=== PATIENT | female | born 1975 | race African-American/Black ===

== ENCOUNTER 2022-10-20 09:04 | Emergency (ER) | payer OTHER, SELFPAY ==
[2022-10-20] MEDS ORDERED: NA CHLORIDE 0.9% 1,000 ML ONE (09:23)
--- NOTE | 2022-10-20 09:37 | RAD REPORT ---
EXAM DESCRIPTION: RAD - Chest Single View - 10/20/2022 9:31 am CLINICAL HISTORY: MALAISE COMPARISON: No comparisons FINDINGS: Lines: None. Lungs: No evidence of edema or pneumonia. Pleural: No significant pleural effusions or pneumothorax. Cardiac: The heart size is within normal limits. Mediastinum: Within normal limits. Bones: No acute fractures. Other: None IMPRESSION: No acute cardiopulmonary disease.
--- NOTE | 2022-10-20 09:54 | RAD REPORT ---
EXAM DESCRIPTION: CT - Head Brain Wo Cont - 10/20/2022 9:44 am CLINICAL HISTORY: CONFUSED COMPARISON: No comparisons TECHNIQUE: All CT scans are performed using dose optimization technique as appropriate and may inclu de automated exposure control or mA/KV adjustment according to patient size. FINDINGS: No intracranial hemorrhage, hydrocephalus or extra-axial fluid collection.No areas of brai n edema or evidence of midline shift. The paranasal sinuses and mastoids are clear. The calvarium is intact. IMPRESSION: No acute intracranial abnormality.
[2022-10-20 09:59] LABS: Protime INR 1.15
[2022-10-20 10:02] LABS: Absolute Lymphocytes (CBC) 1.5 K/uL (0.7-4.9); Hematocrit 43.8 % (36.0-45.0); Lymphocytes % 15.1 % (15.3-44.8); MCV 93.2 fL (80-100); MPV 7.3 fL (7.6-11.3)
[2022-10-20 10:14] LABS: ALT/SGPT 24 U/L (13-56); AST/SGOT 22 U/L (15-37); Albumin 4.5 g/dL (3.4-5.0); Alkaline Phosphatase 73 U/L (45-117); BUN Blood Urea Nitrogen 18 mg/dL (7-18); Bicarbonate 25 mEq/L (21-32); Bilirubin Direct 0.3 mg/dL (0-0.2); Bilirubin Total 0.8 mg/dL (0.2-1.0); Glomerular Filtration Rate 69 ml/min (=/>90); Glucose Level 161 mg/dL (74-106); Potassium 2.9 mEq/L (3.5-5.1); Sodium Level 140 mEq/L (136-145)
[2022-10-20] MEDS ORDERED: POTASSIUM 25 MEQ EFFERV TAB ONE (13:17)
--- NOTE | 2022-10-20 14:41 | ER ---
Nurse's Notes [facility] Name: Jana Harrington Age: 46 yrs Sex: Female : 1975 Arrival Date: 10/20/2022 Time: 09:04 Bed 2 Private MD: Diagnosis: Altered mental status, unspecified Presentation: 10/20 09:07 Chief complaint: EMS states: Found by family lying on ground next to vehicle this hb morning, altered, combative. VS WNL, BGL 136. Coronavirus screen: At this time, the client does not indicate any symptoms associated with coronavirus-19. Ebola Screen: No symptoms or risks identified at this time. Initial Sepsis Screen: Does the patient meet any 2 criteria? No. Patient's initial sepsis screen is negative. Does the patient have a suspected source of infection? No. Patient's initial sepsis screen is negative. Risk Assessment: Do you want to hurt yourself or someone else? Patient reports no desire to harm self or others. Onset of symptoms was October 20, 2022. 09:07 Method Of Arrival: EMS: [facility] 09:07 Acuity: ZAKI 2 hb Historical: - Allergies: 09:09 Unable to obtain; hb - Home Meds: 09:09 Unable to obtain [Active]; hb - PMHx: 09:09 Unable to Obtain; hb - PSHx: 09:09 Unable to Obtain; hb - Immunization history:: Adult Immunizations unknown. - Social history:: Smoking status: unknown. Screenin:12 [facility] ED Fall Risk Assessment (Adult) Score/Fall Risk Level 3 or more points = High hb Risk Oriented to surroundings, Maintained a safe environment, Assessed \T\ reinforced patient's understanding of fall precautions. Abuse screen: Denies threats or abuse. Denies injuries from another. Nutritional screening: No deficits noted. Tuberculosis screening: No symptoms or risk factors identified. Assessment: 09:41 General: Appears in no apparent distress. Behavior is cooperative, restless. Pain: hb Denies pain. Neuro: Level of Consciousness is awake, alert, obeys commands, confused, Oriented to person. Cardiovascular: Patient's skin is warm and dry. Respiratory: Respiratory effort is even, unlabored, Respiratory pattern is regular, symmetrical. GI: No signs and/or symptoms were reported involving the gastrointestinal system. : No signs and/or symptoms were reported regarding the genitourinary system. EENT: No signs and/or symptoms were reported regarding the EENT system. Derm: Skin is pink, warm \T\ dry. Musculoskeletal: No signs and/or symptoms reported regarding the musculoskeletal system. 11:00 Reassessment: Patient appears in no apparent distress at this time. Patient is alert, bp oriented x 3, equal unlabored respirations, skin warm/dry/pink. 13:00 Reassessment: PT REFUSING TO ANSWER ORIENTATION QUESTIONS OR COOPERATE WITH WITH HEALTH bp CARE ACTIVITIES. RESPONDING TO INTERNAL STIMULI. 15:34 Reassessment: REPORT TO JOHN RODRIGUEZ AT [facility]. bp 15:48 Reassessment: Pt's (Grayson) contacted [id number] per MD to notify of aa5 transfer acceptance to [facility], pt's verbalized understanding. . 16:30 Reassessment: Pt refused to take wallet and phone on transfer, Grayson hb contacted via phone and is on the way to mixing picker tender belongings. Vital Signs: 09:07 BP 184 / 104; Pulse 109; Resp 26; Temp 98; Pulse Ox 100% on R/A; Weight 81.65 kg; hb Height 5 ft. 9 in. ; Pain 0/10; 09:41 BP 159 / 83; Pulse 97; Resp 21; Pulse Ox 100% on R/A; hb 11:00 BP 149 / 94; Pulse 89; Resp 15; Pulse Ox 100% ; bp 13:38 BP 165 / 84; Pulse 84; Resp 16; Pulse Ox 100% on R/A; hb 15:41 BP 138 / 88; Pulse 82; Resp 16; Pulse Ox 99% on R/A; hb 09:07 Body Mass Index 26.58 (81.65 kg, 175.26 cm) hb 09:07 Pain Scale: Non-Verbal hb ED Course: 09:06 Patient arrived in ED. hb 09:07 Gustavo Diamond MD is Attending Physician. jr11 09:09 Triage completed. hb 09:09 Arm band placed on. hb 09:13 Patient has correct armband on for positive identification. hb 09:32 Chest Single View XRAY In Process Unspecified. EDMS 09:37 Genoveva Quijano, JENNIFER is Primary Nurse. hb 09:42 Inserted saline lock: 22 gauge in left antecubital area, using aseptic technique. hb ,using aseptic technique. by Nita Blood collected. 09:46 CT Head Brain wo Cont In Process Unspecified. EDMS 14:43 initiated a transfer with Raymundo Delvis from the [facility]. eb 14:[address] Garcia the neurologist subcontract administrator for [facility] with Dr. Diamond for patient transfer consultation. 15:[address] Cobos the hospitalist subcontract administrator for [facility] with Dr. Diamond for patient transfer consultation. 15:16 administrative approval given by Raymundo Edmondson/ patient has been accepted to [facility] RM 1035/ Dr. Nasrin Cobos has accepted the patient in transfer/ report to be called to [phone]. 16:17 No provider procedures requiring assistance completed. Patient transferred, IV remains bp in place. Administered Medications: 09:58 Drug: NS 0.9% IV 1000 ml Route: IV; Rate: 1 bolus; Site: left forearm; hb 10:50 Follow up: Response: No adverse reaction; IV Status: Completed infusion; IV Intake: hb 1000ml 13:28 Drug: Potassium PO Effervescent Tablet 50 mEq Route: PO; hb 14:25 Follow up: Response: No adverse reaction hb Medication: 09:13 VIS not applicable for this client. hb Intake: 10:50 IV: 1000ml; Total: 1000ml. hb Outcome: 14:41 ER care complete, transfer ordered by jr11 16:17 Transferred by ground EMS to [facility]. bp 16:17 Condition: stable 16:17 Instructed on the need for transfer. 16:49 Patient left the ED. hb Signatures: Dispatcher [employer] EDMS Celsa Contreras RN RN aa5 Genoveva Quijano RN RN Veto Lau, JENNIFER RN Mariela Dover Jose, MD MD jr11
--- NOTE | 2022-10-20 14:42 | EDPHYS ---
Physician Documentation [facility] Name: Jana Harrington Age: 46 yrs Sex: Female : 1975 Arrival Date: 10/20/2022 Time: 09:04 Bed 2 Private MD: ED Physician Gustavo Diamond HPI: 10/20 09:11 History gathered from EMS given that the patient is not cooperative. Per EMS, they were jr11 called out for altered mental status, partner woke up, children woke up, wondering where it their mom was and if breakfast was ready. Partner went outside, found her with a blanket outside. Per the partner, she has been visually hallucinating all week, more disorganized, and today was found outside. That he knows per EMS, no psychiatric history or drug history. Unable to obtain review of systems.. Historical: - Allergies: 09:09 Unable to obtain; hb - Home Meds: 09:09 Unable to obtain [Active]; hb - PMHx: 09:09 Unable to Obtain; hb - PSHx: 09:09 Unable to Obtain; hb - Immunization history:: Adult Immunizations unknown. - Social history:: Smoking status: unknown. Exam: 09:11 Constitutional: This is a well developed, well nourished patient who is awake, alert, jr11 and in no acute distress. Head/Face: Normocephalic, atraumatic. Eyes: Extra-ocular motions intact. Lids and lashes normal. Conjunctiva and sclera are non-icteric and not injected. Cornea within normal limits. Periorbital areas with no swelling, redness, or edema. ENT: Nares patent. No nasal discharge, no septal abnormalities noted. Oropharynx with no redness, swelling, or masses, exudates, or evidence of obstruction, uvula midline. Mucous membranes moist. Cardiovascular: tachy low 100s Respiratory: Lungs have equal breath sounds bilaterally, clear to auscultation and percussion. No rales, rhonchi or wheezes noted. No increased work of breathing, no retractions or nasal flaring. Abdomen/GI: Soft, non-tender, with normal bowel sounds. No distension or tympany. No guarding or rebound. No evidence of tenderness throughout. Back: No spinal tenderness. No costovertebral tenderness. Full range of motion. Skin: Warm, dry with normal turgor. Normal color with no rashes, no lesions, and no evidence of cellulitis. MS/ Extremity: Pulses equal, no cyanosis. Neurovascular intact. Full, normal range of motion. Neuro: moving all ext x 4 Vital Signs: 09:07 BP 184 / 104; Pulse 109; Resp 26; Temp 98; Pulse Ox 100% on R/A; Weight 81.65 kg; hb Height 5 ft. 9 in. ; Pain 0/10; 09:41 BP 159 / 83; Pulse 97; Resp 21; Pulse Ox 100% on R/A; hb 11:00 BP 149 / 94; Pulse 89; Resp 15; Pulse Ox 100% ; bp 13:38 BP 165 / 84; Pulse 84; Resp 16; Pulse Ox 100% on R/A; hb 15:41 BP 138 / 88; Pulse 82; Resp 16; Pulse Ox 99% on R/A; hb 09:07 Body Mass Index 26.58 (81.65 kg, 175.26 cm) hb 09:07 Pain Scale: Non-Verbal hb MDM: 09:07 Patient medically screened. jr11 09:11 Differential Diagnosis: CVA, intracranial bleed, overdose, UTI, volume depletion. jr11 Differential Diagnosis: Patient is a 46-year-old brought in by EMS, has been progressively more disorganized, per the partner with hallucinations, potential schizophrenia, although that will be diagnosis of exclusion. Will rule out infection, bleed, tumor, will further work-up this altered mental status given that we do not know if she has any history of this. Patient does not appear to have any sign of trauma, is fully awake, moving all extremities however just not communicating. Per EMS she would have times where she would ramble. Doubt a stroke, although she is not a thrombolytics candidate given that we do not know the onset and found her like this outside the house.. Data reviewed: vital signs, nurses notes, EMS record. 09:29 ED course: EKG interpreted by me shows normal sinus rhythm, normal axis, normal jr11 intervals, no acute ST changes, nonspecific T wave inversion in V3 lead III EKG nondiagnostic. ekg monitor tech interpreted by me shows sinus tachycardia initially and now heart rate of 85 normal sinus rhythm.. 12:55 ED course: Per Grayson partner started few days ago, hyper adventism, prayer, staring jr11 at partner, disappeared, slept outside. Pt denies pain, no complaints. . ED course: Pt also talking about islam, has to touch truck. . 14:37 ED course: Pt w AMS, needs EEG per neuro, admission . 15:12 ED course: Dr Garcia neuro agrees w POC, Dr Cobos accepts . 10/20 09:10 Order name: Acetaminophen; Complete Time: 10:45 10/20 09:10 Order name: Basic Metabolic Panel; Complete Time: :45 10/20 09:10 Order name: CBC with Diff; Complete Time: :45 10/20 09:10 Order name: ETOH Level; Complete Time: :45 10/20 09:10 Order name: Hepatic Function; Complete Time: :45 10/20 09:10 Order name: PT-INR; Complete Time: :45 10/20 09:10 Order name: Ptt, Activated; Complete Time: :45 10/20 09:10 Order name: Salicylate; Complete Time: 10:45 10/20 09:10 Order name: CT Head Brain wo Cont; Complete Time: :56 10/20 09:10 Order name: Chest Single View XRAY; Complete Time: :56 10/20 09:10 Order name: EKG; Complete Time: 09:11 10/20 09:10 Order name: EKG - Nurse/Tech; Complete Time: :38 10/20 09:10 Order name: IV Saline Lock; Complete Time: 10/20 09:10 Order name: Labs collected and sent; Complete Time: 10/20 09:10 Order name: Suicide Screening ([place]); Complete Time: : Administered Medications: 09:58 Drug: NS 0.9% IV 1000 ml Route: IV; Rate: 1 bolus; Site: left forearm; hb 10:50 Follow up: Response: No adverse reaction; IV Status: Completed infusion; IV Intake: hb 1000ml 13:28 Drug: Potassium PO Effervescent Tablet 50 mEq Route: PO; hb 14:25 Follow up: Response: No adverse reaction hb Disposition Summary: 10/20/22 14:41 Transfer Ordered Transfer Location: [facility] jr11 Reason: Higher level of care jr11 Condition: Stable jr11 Problem: new jr11 Symptoms: are unchanged jr11 Accepting Physician: Dr. Cobos(10/20/22 16:49) Diagnosis - Altered mental status, unspecified jr11 Forms: - Medication Reconciliation Form jr11 - SBAR form jr11 Signatures: Dispatcher [employer] EDMS Genoveva Quijano RN RN Mariela Alvares Jose, MD MD jr11 Corrections: (The following items were deleted from the chart) 09:13 09:11 Constitutional: Negative for fever, chills Eyes: Negative for injury, pain, jr11 redness, and discharge, ENT: Negative for injury, pain, and discharge, Cardiovascular: tachy, low 100s Respiratory: Negative for shortness of breath, cough Abdomen/GI: Negative for abdominal pain, nausea, vomiting MS/Extremity: Negative for injury and deformity, Skin: Negative for injury, rash, and discoloration, Neuro: not speaking, moving all ext x 4 jr 15:46 14:[address] 16:49 15:46 Dr. Cobos [facility]
[2022-10-20 16:55] VITALS: TEMP 98
[2022-10-20 17:02] VITALS: BP 138/88; O2SAT 99
--- NOTE | 2022-10-21 12:40 | EKG ---
Test Date: 2022-10-20 Test Time: 09:23:27 Mobile Phlebotomist: LONNIE MEASUREMENT RESULTS: Intervals: Rate: 88 CA: 128 QRSD: 88 QT: 364 QTc: 440 [place]: P: 77 CA: 128 QRS: 79 T: 38 INTERPRETIVE STATEMENTS: Normal sinus rhythm Normal ECG Compared to ECG 10/15/2004 12:10:00 Sinus arrhythmia no longer present Electronically Signed On 10-21-22 12:37:16 CDT by Jaren Roberson
== END 2022-10-20 16:49 | disposition short-term general hospital (02) ==
LOC: ER 09:04
DX: R41.82 Altered mental status, unspecified (principal)
CPT/HCPCS: 36415; 70450; 71045; 80048; 80076; 85025; 85610; 85730; 93005; 96360; 99285; G0480; J7030

== ENCOUNTER 2024-07-24 22:34 | Emergency (ER) | payer SELFPAY ==
[2024-07-24] MEDS ORDERED: ZIPRASIDONE MESYLA 20 MG/VIAL IM ONE (22:50)
[2024-07-24] MEDS ORDERED: WATER FOR INJ,STERILE 10 ML ONE (22:50)
[2024-07-25] MEDS ORDERED: LORAZEPAM 1 MG TABLET ONE (01:11)
[2024-07-25] MEDS ORDERED: ACETAMINOPHEN 500 MG TAB ONE (01:11)
[2024-07-25] MEDS ORDERED: LORazepam 2 MG/ML VIAL ONE (03:14)
[2024-07-25 03:29] LABS: Absolute Basophils 0.1 K/uL (0-0.5); Absolute Lymphocytes (CBC) 3.7 K/uL (0.7-4.9); Absolute Neutrophil 6.8 K/uL (1.8-8.0); Eosinophils % 0.4 % (0-4.4); Hematocrit 43.2 % (36.0-45.0); Hemoglobin 14.8 g/dL (12.0-15.0); Lymphocytes % 31.9 % (15.3-44.8); MCH 31.5 pg (27.0-35.0); MCHC 34.2 g/dL (32.0-36.0); Monocytes % 8.4 % (3.3-12.3); Neutrophils % 58.3 % (41.7-73.7); Nucleated Red Blood Cells % 0.1 % (0-0); Platelets 333 thou/uL (152-406); Red Cell Distribution Width 12.7 % (12.1-15.2)
[2024-07-25 03:40] LABS: PT Prothrombin Time 12.4 SECONDS (9.4-12.5); PTT, Activated Partial Thromb 19.4 SECONDS (24.3-36.9); Protime INR 1.18
[2024-07-25 04:06] LABS: ALT/SGPT 20 U/L (13-56); AST/SGOT 26 U/L (15-37); Albumin 3.5 g/dL (3.4-5.0); Albumin/Globulin Ratio 0.7 (1.1-1.8); Alkaline Phosphatase 65 U/L (45-117); BUN Blood Urea Nitrogen 15 mg/dL (7-18); Bicarbonate 26 mEq/L (21-32); Bilirubin Total 0.8 mg/dL (0.2-1.0); Globulin 4.7 g/dL (2.3-3.5); Glomerular Filtration Rate 104 ml/min (=/>90); Glucose Level 143 mg/dL (74-106); Protein, Total 8.2 g/dL (6.4-8.2); Sodium Level 137 mEq/L (136-145)
[2024-07-25 04:07] LABS: Bilirubin Direct < 0.2 mg/dL (0-0.2); Bilirubin Indirect, Calculated 0.6 mg/dL (0.2-0.8)
[2024-07-25 04:47] LABS: Platelet Estimate ADEQ; Platelets Clumped FEW; White Blood Cell Scan OK (OK)
[2024-07-25 04:48] LABS: Blood Morphology Comment NOT SEEN (NOT SEEN)
--- NOTE | 2024-07-25 06:57 | EDPHYS ---
Physician Documentation [facility] Name: Jana Harrington Age: 48 yrs Sex: Female : 1975 Arrival Date: 07/24/2024 Time: 22:34 Bed 16 Private MD: ED Physician Gerardo Kidd HPI: 07/24 22:48 This 48 yrs old Black Female presents to ER via Unassigned with complaints of delusions sp4 , uncooperative behavior. 02 02:44 This is 58-year-old female with history of schizophrenia and bipolar disorder who sp4 presents with acute delusions and uncooperative behavior. EMS states patient was talking to the mirror at home and would not get out of the bathroom. Patient's family has called EMS and reported the patient has not been on her psychiatric medications for several months. On arrival patient states she is stressed out she is restlessly pacing the room. 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 - Infectious Disease History:: Denies. - Social history:: Smoking status: unknown. - Family history:: not pertinent. ROS: 07/25 02:45 Constitutional: ROS not available secondary to acute psychosis sp4 All other systems are negative, Unable to obtain ROS due to patient being uncooperative, Exam: 02:45 Constitutional: This is a well developed, well nourished patient who is awake, alert, sp4 restlessness, moderate anxiety to severe anxiety, moderate agitation, patient is pacing the room [id number] Head/Face: Normocephalic, atraumatic. Eyes: Pupils equal round and reactive to light, extra-ocular motions intact. Lids and lashes normal. Conjunctiva and sclera are not injected. Cornea within normal limits. Periorbital areas with no swelling, redness, or edema. ENT: Nares patent. No nasal discharge, no septal abnormalities noted. Tympanic membranes are normal and external auditory canals are clear. Oropharynx with no redness, swelling, or masses, exudates, or evidence of obstruction, uvula midline. Mucous membranes moist. Neck: Trachea midline, no thyromegaly or masses palpated, and no cervical lymphadenopathy. Supple, full range of motion without nuchal rigidity, or vertebral point tenderness. Chest/axilla: Normal chest wall appearance and motion. Nontender with no deformity. No lesions are appreciated. Cardiovascular: Regular rate and rhythm with a normal S1 and S2. No gallops, murmurs, or rubs. Normal PMI, no JVD. No pulse deficits. Respiratory: Lungs have equal breath sounds bilaterally, clear to auscultation and percussion. No rales, rhonchi or wheezes noted. No increased work of breathing, no retractions or nasal flaring. Abdomen/GI: Soft, with normal bowel sounds. No distension or tympany. No guarding or rebound. No evidence of tenderness throughout. Back: No spinal tenderness. No costovertebral tenderness. Skin: Warm, dry with normal turgor. Normal color with no rashes, no lesions, and no evidence of cellulitis. MS/ Extremity: Pulses equal, no cyanosis. Neurovascular intact. Full, normal range of motion. Neuro: Awake and alert, GCS 14, grossly no lateralizing neurologic deficits. Psych: Awake, alert, with orientation to person, moderate to severe anxiety, restlessness, moderate agitation Vital Signs: 07/24 22:34 BP 162 / 111; Pulse 101; Resp 18; Temp 98.1; Pulse Ox 100% ; Weight 83.91 kg; Height 6 cp4 ft. 0 in. ; Pain 0/10; 07/25 07:40 db 08:23 BP 150 / 94; Pulse 88; Resp 16; Temp 98.1; Pulse Ox 100% ; db 07/24 22:34 Body Mass Index 25.09 (83.91 kg, 182.88 cm) cp4 07/24 22:34 Pain Scale: Adult cp4 07:40 PT REFUSED MORNING LABS db Somers Coma Score: 02:45 Eye Response: spontaneous(4). Motor Response: obeys commands(6). Verbal Response: sp4 oriented(5). Total: 15. 02:45 Eye Response: spontaneous(4). Motor Response: obeys commands(6). Verbal Response: sp4 confused(4). Total: 14. MDM: 07/24 22:49 Medical Screening Exam initiated sp4 07/25 06:54 Differential diagnosis: drug withdrawal. acute psychotic break, depression, psychosis sp4 secondary to non-compliance. Data reviewed: vital signs, nurses notes, EMS record, lab test result(s), EKG. Consideration of Admission/Observation Escalation of care including admission/observation considered. ED course: Patient was discussed with the [employer] and who have reported that patient is medically cleared for their assessment. At this time patient is not able to provide any urine. Patient becomes agitated and combative on awakening. 07:20 Transition of care: After a detail discussion of the patient's case, care is sp4 transferred to Edison Daniel MD. 02 22:49 Order name: Acetaminophen; Complete Time: 05:15 sp4 07/24 22:49 Order name: Basic Metabolic Panel; Complete Time: 05:15 sp4 07/24 22:49 Order name: CBC with Diff; Complete Time: 05:15 sp4 07/24 22:49 Order name: ETOH Level; Complete Time: 05:15 sp4 07/24 22:49 Order name: Hepatic Function; Complete Time: 05:15 sp4 07/24 22:49 Order name: PT-INR; Complete Time: 05:15 sp4 07/24 22:49 Order name: Ptt, Activated; Complete Time: 05:15 sp4 07/24 22:49 Order name: Salicylate; Complete Time: 05:15 sp4 07/24 22:49 Order name: TSH; Complete Time: 05:15 sp4 07/24 22:49 Order name: T4 Free; Complete Time: 05:15 sp4 07/25 04:49 Order name: CBC Smear Scan EDMI 07/24 22:49 Order name: Labs collected and sent; Complete Time: 05:09 sp4 07/24 22:49 Order name: Suicide Precautions; Complete Time: 00:00 sp4 07/24 22:49 Order name: Suicide Screening ([place]); Complete Time: 00:00 sp4 Administered Medications: 07/24 22:58 Drug: Geodon IM 40 mg IM once Route: IM; Site: left deltoid; cp4 07/25 01:33 Follow up: Response: No adverse reaction cp4 03:11 Not Given (Patient Refused): lorazepam2 mg PO once cp4 03:11 Not Given (Patient Refused): [id number] mg PO once cp4 03:19 Not Given (Patient Refused): ns 0.9% 1000 ml IV at 1 bolus Per protocol; to be given as cp4 a bolus over 60 minutes 03:19 Drug: LORazepam IM 2 mg IM once Route: IM; Site: right deltoid; cp4 04:00 Follow up: Response: No adverse reaction; RASS: Drowsy (-1) ha1 Disposition Summary: 07/25/24 06:56 Transfer Ordered Notes: Transfer Location: [facility] Facility sp4 Reason: Higher level of care sp4 Condition: Stable sp4 Problem: new sp4 Symptoms: have improved sp4 Accepting Physician: Attending psychiatrist(07/25/24 08:39) eb Diagnosis - Acute psychosis, noncompliance with medical management, acute hallucinations and sp4 delusions Discharge Instructions: - Discharge Summary Sheet sp Forms: - Medication Reconciliation Form sp - SBAR form sp4 Signatures: Dispatcher [employer] EDMariela Castro Sergey, MD MD sp4 Alda Gonzales Heidy RN ha1 Corrections: (The following items were deleted from the chart) 07/24 22:49 22:49 ACETAMINOPHEN+C.LAB.BRZ ordered. EDMS EDMS 22:49 22:49 BASIC METABOLIC PANEL+C.LAB.BRZ ordered. EDMS EDMS 22:49 22:49 CBC+H.LAB.BRZ ordered. EDMS EDMS 22:49 22:49 ETHANOL+C.LAB.BRZ ordered. EDMS EDMS 22:49 22:49 HEPATIC FUNCTION+C.LAB.BRZ ordered. EDMS EDMS 22:49 22:49 PROTIME (+INR)+COAG.LAB.BRZ ordered. EDMS EDMS 22:49 22:49 Test, Urine+UC.LAB.BRZ ordered. EDMS EDMS 22:49 22:49 PTT, ACTIVATED+COAG.LAB.BRZ ordered. EDMS EDMS 22:49 22:49 SALICYLATE+C.LAB.BRZ ordered. EDMS EDMS 22:49 22:49 Urinalysis+U.LAB.BRZ ordered. EDMS EDMS 22:49 22:49 URINE DRUG SCREEN+UC.LAB.BRZ ordered. EDMS EDMS 07/25 05:09 07/24 22:49 EKG - Nurse/Tech ordered. sp4 ha1 07/25 05:09 07/24 22:49 IV Saline Lock ordered. sp4 ha1 07/25 08:39 06:56 Attending psychiatrist sp4 eb
--- NOTE | 2024-07-25 06:57 | ER ---
Nurse's Notes [facility] Name: Jana Harrington Age: 48 yrs Sex: Female : 1975 Arrival Date: 07/24/2024 Time: 22:34 Bed 16 Private MD: Diagnosis: Acute psychosis, noncompliance with medical management, acute hallucinations and delusions Presentation: 07/24 22:34 Chief complaint: EMS states: schizophrenia and bipolar patient that has been off her cp4 meds for 3 days. 22:34 Coronavirus screen: Client denies travel out of the [place] in the last 14 days. Ebola cp4 Screen: Patient negative for fever greater than or equal to 101.5 degrees Fahrenheit, and additional compatible Ebola Virus Disease symptoms Patient denies exposure to infectious person. Patient denies travel to an Ebola-affected area in the 21 days before illness onset. No symptoms or risks identified at this time. Initial Sepsis Screen: Does the patient meet any 2 criteria? HR > 90 bpm. No. Patient's initial sepsis screen is negative. Does the patient have a suspected source of infection? No. Patient's initial sepsis screen is negative. Risk Assessment: Do you want to hurt yourself or someone else? Patient reports no desire to harm self or others. Onset of symptoms was July 20, 2024. 22:34 Method Of Arrival: EMS: [facility] cp4 22:34 Acuity: ZAKI 2 cp4 Triage Assessment: 22:34 General: Appears in no apparent distress. comfortable, Behavior is calm, cooperative, cp4 appropriate for age. Pain: Denies pain. EENT: No signs and/or symptoms were reported regarding the EENT system. Neuro: Level of Consciousness is awake, alert, obeys commands, Oriented to person, place. Cardiovascular: Patient's skin is warm and dry. Respiratory: Airway is patent Respiratory effort is even, unlabored. GI: No signs and/or symptoms were reported involving the gastrointestinal system. : No signs and/or symptoms were reported regarding the genitourinary system. Derm: No signs and/or symptoms reported regarding the dermatologic system. Musculoskeletal: No signs and/or symptoms reported regarding the musculoskeletal system. AUDIO VISUAL FACILITIES ENGINEER: 22:34 unknown cp4 Historical: - Allergies: 22:34 No Known Allergies; cp4 - PMHx: 22:34 Schizophrenia; Bipolar disorder; cp4 - Immunization history:: Adult Immunizations not up to date. - Infectious Disease History:: Denies. - Social history:: Smoking status: unknown. - Family history:: not pertinent. Screenin:34 [facility] ED Fall Risk Assessment (Adult) History of falling in the last 3 months, cp4 including since admission No falls in past 3 months (0 pts) Confusion or Disorientation No (0 pts) Intoxicated or Sedated No (0 pts) Impaired Gait No (0 pts) Mobility Assist Device Used No (0 pt) Altered Elimination No (0 pt) Score/Fall Risk Level 0 - 2 = Low Risk Oriented to surroundings, Maintained a safe environment, Assessed \\T\\ reinforced patient's understanding of fall precautions, Hourly rounding (assess needs \\T\\ fall precautionary measures) done. Abuse screen: Denies threats or abuse. Denies injuries from another. Nutritional screening: No deficits noted. Tuberculosis screening: No symptoms or risk factors identified. Assessment: 22:34 Reassessment: No changes from previously documented assessment. cp4 22:53 Reassessment: Patient uncooperative with blood draw and EKG. Provider notified and cp4 medication ordered. 23:00 General: Behavior is agitated, uncooperative. cp4 07/25 00:00 Reassessment: Patient appears in no apparent distress at this time. No changes from cp4 previously documented assessment. Patient and/or family updated on plan of care and expected duration. Pain level reassessed. 00:00 Reassessment: Patient refusing to have vital signs taken. ha1 01:17 Reassessment: Unable to obtain IV access or blood from straight stick at this time. cp4 Patient agitated and crying out loud. 01:21 Reassessment: Patient refusing to take prescribed PO medications. Provider notified. cp4 02:30 Reassessment: TONNY REQUESTED FROM [employer]. ha1 03:23 Reassessment: Code Sanchez called due to patient walking into other patient rooms and cp4 refusing to stay in her room. 04:09 Reassessment: eyes closed, laying on bed. Respiratory: Airway is patent Respiratory ha1 effort is even, unlabored, Respiratory pattern is regular, symmetrical. 07:03 Reassessment: Patient refusing to be hooked up to monitor, will not allow nurse to take ld1 vital signs. Notified ERP. 07:03 Reassessment: Patient appears in no apparent distress at this time. General: Behavior ld1 is calm. Respiratory: Airway is patent Respiratory effort is even, unlabored. 07:24 Reassessment: Transfer paperwork completed. Waiting on transport to [facility] facility. 07:46 Reassessment: Patient appears in no apparent distress at this time. Patient and/or db family updated on plan of care and expected duration. Pain level reassessed. PT RESTING QUIETLY IN NAD. RESPIRATIONS EVEN AND UNLABORED. 08:23 Reassessment: Patient appears in no apparent distress at this time. Patient and/or db family updated on plan of care and expected duration. Pain level reassessed. Patient is alert, oriented x 3, equal unlabored respirations, skin warm/dry/pink. MENTAL HEALTH DEPUTY AT PATIENT BEDSIDE. PT CALM AND COOPERATIVE AT THIS TIME. General: Appears in no apparent distress. comfortable, Behavior is calm, cooperative. Psych: 07/24 22:34 [place] Suicide Severity Screening: In the past month, have you wished you were cp4 or wished you could go to sleep and not wake up? Patient responds "No." "In the past month, have you actually had any thoughts of killing yourself?" Patient responds "no." "In your lifetime, have you ever done anything, started to do anything, or prepared to do anything to end your life?" Patient responds "no.". Subjective: Patient's mood is irritable. Objective: Patient is cooperative, Speech is normal, Affect is flat, Patient has mutilated themselves by none. Interventions: Removed personal items and placed in bag. Patient placed in hospital gown. Searched person for dangerous items. Belonging list filled out. Safety Checks: Personal items have been removed. Pt denies substance abuse. Commitment: Patient will be a voluntary commitment. Vital Signs: 22:34 BP 162 / 111; Pulse 101; Resp 18; Temp 98.1; Pulse Ox 100% ; Weight 83.91 kg; Height 6 cp4 ft. 0 in. ; Pain 0/10; 07/25 07:40 db 08:23 BP 150 / 94; Pulse 88; Resp 16; Temp 98.1; Pulse Ox 100% ; db 07/24 22:34 Body Mass Index 25.09 (83.91 kg, 182.88 cm) cp4 02 22:34 Pain Scale: Adult cp4 07:40 PT REFUSED MORNING LABS db Bridger Coma Score: 02:45 Eye Response: spontaneous(4). Motor Response: obeys commands(6). Verbal Response: sp4 oriented(5). Total: 15. 02:45 Eye Response: spontaneous(4). Motor Response: obeys commands(6). Verbal Response: sp4 confused(4). Total: 14. ED Course: 07/24 22:34 Arm band placed on right wrist. Patient placed in an exam room, on a stretcher. cp4 22:34 Bed in low position. Call light in reach. Side rails up X2. cp4 22:34 No provider procedures requiring assistance completed. cp4 22:38 Patient arrived in ED. ha1 22:48 Gerardo Kidd MD is Attending Physician. sp4 22:58 Alda Gonzales is Primary Nurse. cp4 02 00:05 Triage completed. cp4 01:16 Missed attempt(s): 20 gauge in right. cp4 01:17 Missed attempt(s): 22 gauge in left antecubital area. cp4 03:04 Missed attempt(s): 22 gauge in right hand. cp4 03:04 Initial lab(s) drawn, by ED staff, sent to lab. cp4 03:44 One-on-one care X 60 minutes. cp4 05:17 CALLED [facility]OL[facility] FOR EOD. sp 05:19 CALLED [facility] TALKED TO: HILARIO. sp 06:[facility] Dr. Kidd to discuss patient screening. eb 06:30 faxed patient in clinical information to [facility] at [phone]. eb 06:34 connected [facility] via [facility] Iphone for patient screening. eb 07:00 connected Judah Edmond from [facility] with Alda Edmond for nurse to nurse. eb 07:09 administrative approval given by Maya Castro/ patient has been accepted to [facility] Mireille Garland/ . Maya Castro has accepted the patient in transfer. 07:28 called the [employer] to page the manager route mortgage loan computation clerk to sign transfer warrant. eb 07:31 Judge Rivas called he will send the signed warrant from his office. eb 08:23 Provided Education on: TRANSFERRED TO PSYCH. db 08:23 Warm blanket given. Pillow given. db 08:23 Patient did not have IV access during this emergency room visit. db Administered Medications: 07/24 22:58 Drug: Geodon IM 40 mg IM once Route: IM; Site: left deltoid; cp4 07/25 01:33 Follow up: Response: No adverse reaction cp4 03:11 Not Given (Patient Refused): lorazepam2 mg PO once cp4 03:11 Not Given (Patient Refused): [id number] mg PO once cp4 03:19 Not Given (Patient Refused): ns 0.9% 1000 ml IV at 1 bolus Per protocol; to be given as cp4 a bolus over 60 minutes 03:19 Drug: LORazepam IM 2 mg IM once Route: IM; Site: right deltoid; cp4 04:00 Follow up: Response: No adverse reaction; RASS: Drowsy (-1) ha1 Medication: 07/24 22:34 VIS not applicable for this client. cp4 Outcome: 07/25 06:56 ER care complete, transfer ordered by . sp4 08:23 Transferred Transfer form completed. Note: [facility] db 08:23 Condition: stable 08:23 Instructed on the need for transfer, 08:39 Patient left the ED. eb Signatures: Rylie Brice Elizabeth eb Quin Garcia, RN RN ld1 Mildred Bear RN RN ha1 Mary Ann Sinha RN RN db Gerardo Kidd MD MD sp4 Alda Gonzales cp4 Corrections: (The following items were deleted from the chart) 04:11 04:09 Reassessment: eyes closed ha1 ha1
[2024-07-25 08:43] VITALS: TEMP 98.1; O2SAT 100
[2024-07-25 08:44] VITALS: BP 150/94
== END 2024-07-25 08:39 ==
LOC: ER 22:34
DX: F23 Brief psychotic disorder (principal); Z91.199 Patient's noncompliance with other medical treatment and regimen due to unspecified reason
CPT/HCPCS: 36415; 80048; 80076; 80143; 80179; 82077; 84439; 84443; 85025; 85610; 85730; 96372; 99291; 99292; J3486

== ENCOUNTER 2025-03-12 23:38 | Emergency (ER) | payer SELFPAY ==
--- OUTSIDE RECORDS SUMMARY | 2025-03-12 23:42 | XMS REPORT | Continuity of Care Document ---
Author Name Unknown Address [address] [place] [address] [address] [place] [address] [facility] Address [address] [facility] [address] [place] [address] Care Team Providers Care Biological Sciences Instructor Name Role Phone BLANCA LING Attending Clinician Unavail able LUMA VAN V. Attending Clinician Unavailabl BLANCA Denton Admitting Clinician Unavail able Problems Condition Name Condition Details Condition Category Status Onset Date Resolution Date Last Treatment Date Treating Clinician Comments Source Altered behavior Altered behavior Disease Active 10-20 00:00: 00 [facility] Allergies, Adverse Reactions, Alerts Allergy Name Allergy Type Status Severity Reaction(s) Onset Date Inactive Date Treating Clinician Comments Source NO KNOWN ALLERGIE S Allergy Active [facility] Social History Social Habit Start Date Stop Date Quantity Comments Source ASSERTION Not [facility] Sexual orientation C [facility] Sex 2025-02-01 01:27:10 2025-02-01 01:27:10 Female (finding) [facility] Sex assigned at 1975 00:00:00 1975 00:00:00 [facility] Medications Ordered Medication Name Filled Medication Name Start Date Stop Date Current Medication? Ordering Clinician Indication Dosage Frequency Signature (SIG) Comments Components Source melatonin 3 mg tablet 10-29 00:00: 00 Yes 3mg Take 1 tablet (3 mg total) by mouth every night as needed for Insomnia. [facility] Procedures Procedure Date / Time Performed Performing Clinicia n Source LIPID PANEL 2022-10-21 04:45:[address] [facility] HC LAB HIV-1 AG W/HIV-1&2 AB 2022-10-21 04:45:00 Desaimable Green Sharon [facility] Encounters Start Date/Time End Date/Time Encounter Type Admission Type Attending Clinicians Care Facility Care Department Encounter ID Source 2022-10-20 17:36:00 2022-10-29 12:55:00 Inpatient ER [facility] Neurology [id number] [facility] Results Test Description Test Time Test Comments Results Result Co mments Source FL, LUMBAR PUNCTURE, [id number] 10:47:00Send csf for protein, glucose, cell count with diff as part of lupus w/u Reason for exam:->[facility] 1975 Sex: FFINAL REPORT Procedure: Lumbar puncture Modality: Fluoroscopy Total fluoroscopy time: 0.3 Total number of films: 2 Sedation: None Anesthesia: 1% lidocaine local Indication: lumbar puncture Discussion: The patient was sterilely prepped and draped. 1% lidocaine was used for local anesthesia. Using fluoroscopic guidance, a 22g needle was introduced into the thecal sac. Approximately9 cc of spinal fluid was removed and sent to the laboratory. There were no procedure related complications. Impression: Successful fluoroscopy guided lumbar puncture. Signed: Nayla Hitchcock MDRisamarort Verified Date/Time: 10/30/2022 10:47:40 Reading Location: [facility] C013V Neuro Reading Room PROTEIN, CSF 2022-10-29 12:51:31* Test Item Value Reference Range Interpretation Comme nts PROTEIN CSF (BEAKER) (test c ode = 378) 53 mg/dL 15-45 [employer] ID - JSCSF CELL COUNT W/[id number] 12:16:22* Test Item Value Reference Range Interpretation Comme nts APPEARANCE CSF (BEAKER) (vish t code = 407) Clear Clear COLOR CSF (BEAKER) (test cod e = 408) Colorless Colorless RBC CSF (BEAKER) (test code = 409) 5 /cu mm 0-5 WBC CSF (BEAKER) (test code = 1020) 0 /cu mm <=5 RBCS FRESH (BEAKER) (test co de = 1444) 100% Fresh NUMBER OF CELLS DIFF'D (BEAK ER) (test code = 1591) 10 NEUTROPHIL, CSF (BEAKER) (te st code = 324) 0 % 0-5 LYMPHS CSF (BEAKER) (test co de = 438) 40 % 40-80 MONO/MACROPHAGE CSF (BEAKER) (test code = 439) 60 % 15-45 H EOSINOPHILS CSF (BEAKER) (te st code = 360) 0 % <=0 BASO CSF (BEAKER) (test code = 440) 0 % <=0 TUBE NUMBER CSF (BEAKER) (te st code = 3798) EDTA GLUCOSE, [id number] 09:44:36* Test Item Value Reference Range Interpretation Comme nts GLUCOSE CSF (BEAKER) (test c ode = 406) 83 mg/dL 40-70 [employer] ID - JSPREGNANCY SCREEN, [id number] 07:32:06* Test Item Value Reference Range Interpretation Comme nts TEST URINE (BEAKER ) (test code = 583) Negative Negative BASIC METABOLIC [id number] 06:44:10* Test Item Value Reference Range Interpretation Comme nts SODIUM (BEAKER) (test code = 381) 136 meq/L 136-145 POTASSIUM (BEAKER) (test code = 379) 3.6 meq/L 3.5-5.1 CHLORIDE (BEAKER) (test code = 382) 106 meq/L 98-107 CO2 (BEAKER) (test code = 355) 23 meq/L 22-29 BLOOD UREA NITROGEN (BEAKER) (test code = 354) 7 mg/dL 7-21 CREATININE (BEAKER) (test code = 358) 0.68 mg/dL 0.57-1.25 GLUCOSE RANDOM (BEAKER) (test code = 652) 125 mg/dL 70-105 H CALCIUM (BEAKER) (test code = 697) 8.7 mg/dL 8.4-10.2 EGFR (BEAKER) (test code = 1092) 109 mL/min/1.73 sq m Interpretation of eG FR values Stage Description Result G1 Normal or high >=90 G2 Mildly decreased 60-89 G3a Mildly to moderately 45-59 G3b Moderately to severely 30-44 G4 Severly decreased 15-29 G5 Kidney failure <15Reported eGFR is based on the CKD-EPI 2020 equation that does not use a race coefficientEstimated GFR is not as accurate as Creatinine Clearance in predicting glomerular filtration rate. Estimated GFR is not applicable for dialysis patients [employer] L[employer] ID - BSCBC W/PLT COUNT & AUTO [id number] 06:12:08* Test Item Value Reference Range Interpretation Comme nts WHITE BLOOD CELL COUNT (BEAK ER) (test code = 775) 6.6 K/ L 3.5-10.5 RED BLOOD CELL COUNT (BEAKER ) (test code = 761) 4.18 M/ L 3.93-5.22 HEMOGLOBIN (BEAKER) (test co de = 410) 13.0 GM/DL 11.2-15.7 HEMATOCRIT (BEAKER) (test co de = 411) 38.5 % 34.1-44.9 MEAN CORPUSCULAR VOLUME (JUDIT KER) (test code = 753) 92 fL 79-95 MEAN CORPUSCULAR HEMOGLOBIN (BEAKER) (test code = 751) 31.1 pg 25.6-32.2 MEAN CORPUSCULAR HEMOGLOBIN CONC (BEAKER) (test code = 752) 33.8 GM/DL 32.2-35.5 RED CELL DISTRIBUTION WIDTH (BEAKER) (test code = 412) 11.7 % 11.7-14.4 PLATELET COUNT (BEAKER) (vish t code = 756) 390 K/CU MM 150-450 MEAN PLATELET VOLUME (BEAKER ) (test code = 754) 9.2 fL 9.4-12.3 L NUCLEATED RED BLOOD CELLS (BEAKER) (test code = 413) 0 /100 WBC 0-0 NEUTROPHILS RELATIVE PERCENT (BEAKER) (test code = 429) 40 % LYMPHOCYTES RELATIVE PERCENT (BEAKER) (test code = 430) 46 % MONOCYTES RELATIVE PERCENT (BEAKER) (test code = 431) 10 % EOSINOPHILS RELATIVE PERCENT (BEAKER) (test code = 432) 4 % BASOPHILS RELATIVE PERCENT (BEAKER) (test code = 437) 1 % NEUTROPHILS ABSOLUTE COUNT (BEAKER) (test code = 670) 2.68 K/ L 1.56-6.13 LYMPHOCYTES ABSOLUTE COUNT (BEAKER) (test code = 414) 3.03 K/ L 1.18-3.74 MONOCYTES ABSOLUTE COUNT (BE NNAMDI) (test code = 415) 0.63 K/ L 0.24-0.36 H EOSINOPHILS ABSOLUTE COUNT (BEAKER) (test code = 416) 0.23 K/ L 0.04-0.36 BASOPHILS ABSOLUTE COUNT (BE NNAMDI) (test code = 417) 0.05 K/ L 0.01-0.08 IMMATURE GRANULOCYTES-RELATI VE PERCENT (BEAKER) (test code = 2801) 0.20 % 0.00-1.00 [id number] 06:06:19* Test Item Value Reference Range Interpretation Comme nts PROTIME (BEAKER) (test code = 759) 14.3 seconds 11.9-14.2 H INR (BEAKER) (test code = 370) 1.18 <=5.90 PARTIAL THROMBOPLASTIN TIME (BEAKER) (test code = 760) 29.1 seconds 22.5-36.0 RECOMMENDED COUMADIN/WARFARIN INR THERAPY RANGESSTANDARD DOSE: 2.0 - 3.0 Includes: PROPHYLAXIS for venous thrombosis, systemic embolization; TREATMENT for venous thrombosis and/or pulmonary embolus.HIGH RISK: Target INR is 2.5-3.5 for patients with mechanical heart valves.BASIC METABOLIC [id number] 05:01:23* Test Item Value Reference Range Interpretation Comme nts SODIUM (BEAKER) (test code = 381) 138 meq/L 136-145 POTASSIUM (BEAKER) (test code = 379) 3.9 meq/L 3.5-5.1 CHLORIDE (BEAKER) (test code = 382) 108 meq/L 98-107 H CO2 (BEAKER) (test code = 355) 23 meq/L 22-29 BLOOD UREA NITROGEN (BEAKER) (test code = 354) 8 mg/dL 7-21 CREATININE (BEAKER) (test code = 358) 0.67 mg/dL 0.57-1.25 GLUCOSE RANDOM (BEAKER) (test code = 652) 163 mg/dL 70-105 H CALCIUM (BEAKER) (test code = 697) 9.0 mg/dL 8.4-10.2 EGFR (BEAKER) (test code = 1092) 110 mL/min/1.73 sq m Interpretation of eG FR values Stage Description Result G1 Normal or high >=90 G2 Mildly decreased 60-89 G3a Mildly to moderately 45-59 G3b Moderately to severely 30-44 G4 Severly decreased 15-29 G5 Kidney failure <15Reported eGFR is based on the CKD-EPI 2021 equation that does not use a race coefficientEstimated GFR is not as accurate as Creatinine Clearance in predicting glomerular filtration rate. Estimated GFR is not applicable for dialysis patients [employer] METABOLIC [id number] 05:15:59* Test Item Value Reference Range Interpretation Comme nts SODIUM (BEAKER) (test code = 381) 139 meq/L 136-145 POTASSIUM (BEAKER) (test code = 379) 3.7 meq/L 3.5-5.1 CHLORIDE (BEAKER) (test code = 382) 105 meq/L 98-107 CO2 (BEAKER) (test code = 355) 26 meq/L 22-29 BLOOD UREA NITROGEN (BEAKER) (test code = 354) 7 mg/dL 7-21 CREATININE (BEAKER) (test code = 358) 0.66 mg/dL 0.57-1.25 GLUCOSE RANDOM (BEAKER) (test code = 652) 119 mg/dL 70-105 H CALCIUM (BEAKER) (test code = 697) 9.3 mg/dL 8.4-10.2 EGFR (BEAKER) (test code = 1092) 110 mL/min/1.73 sq m Interpretation of eG FR values Stage Description Result G1 Normal or high >=90 G2 Mildly decreased 60-89 G3a Mildly to moderately 45-59 G3b Moderately to severely 30-44 G4 Severly decreased 15-29 G5 Kidney failure <15Reported eGFR is based on the CKD-EPI 2021 equation that does not use a race coefficientEstimated GFR is not as accurate as Creatinine Clearance in predicting glomerular filtration rate. Estimated GFR is not applicable for dialysis patients [employer] Librarian ID - [employer] METABOLIC [id number] 05:50:42* Test Item Value Reference Range Interpretation Comme nts SODIUM (BEAKER) (test code = 381) 139 meq/L 136-145 POTASSIUM (BEAKER) (test code = 379) 3.9 meq/L 3.5-5.1 CHLORIDE (BEAKER) (test code = 382) 108 meq/L 98-107 H CO2 (BEAKER) (test code = 355) 24 meq/L 22-29 BLOOD UREA NITROGEN (BEAKER) (test code = 354) 6 mg/dL 7-21 L CREATININE (BEAKER) (test code = 358) 0.68 mg/dL 0.57-1.25 GLUCOSE RANDOM (BEAKER) (test code = 652) 132 mg/dL 70-105 H CALCIUM (BEAKER) (test code = 697) 9.3 mg/dL 8.4-10.2 EGFR (BEAKER) (test code = 1092) 109 mL/min/1.73 sq m Interpretation of eG FR values Stage Description Result G1 Normal or high >=90 G2 Mildly decreased 60-89 G3a Mildly to moderately 45-59 G3b Moderately to severely 30-44 G4 Severly decreased 15-29 G5 Kidney failure <15Reported eGFR is based on the CKD-EPI 2020 equation that does not use a race coefficientEstimated GFR is not as accurate as Creatinine Clearance in predicting glomerular filtration rate. Estimated GFR is not applicable for dialysis patients [employer] L[employer] ID - ADMINMR, BRAIN, [id number] 20:54:00Unlisted Reason for Exam - Click Yes and Enter Reason Below->Yes Unlisted Reason for Exam->acute psychosis, positive [facility] 1975 Sex: FFINAL REPORT MRI Brain with and without contrast CLINICAL HISTORY: Unlisted Reasonfor Examacute psychosis, positive CORINNE Technique: Multiplanar, multisequence MRI images of the brainobtained with and without IV contrast. Comparisons: None Findings: There is no abnormal intracranial enhancement or mass. There is no evidence of acute infarct or hemorrhage. There are no extra-axialfluid collections. The craniocervical junction is preserved. The major intracranial flow-voids appear patent. IMPRESSION: No evidence of acute infarct, hemorrhage, hydrocephalus, or mass. Signed: Caleb Layton MDReport Verified Date/Time: 10/25/2022 20:54:41 LUPUS ANTICOAGULANT SCREEN WITH REFLEX TO [id number] 17:22:51* Test Item Value Reference Range Interpretation Comme nts DRVV SCREEN RATIO (BEAKER) (test code = 2707) 0.75 <1.20 DRVV INTERPRETATION (BEAKER) (test code = 2406) Negative screen for Lupus Anticoagulant PROTIME (BEAKER) (test code = 759) 12.7 seconds 11.9-14.2 INR (BEAKER) (test code = 370) 0.97 <=5.90 PARTIAL THROMBOPLASTIN TIME (BEAKER) (test code = 760) 27.0 seconds 22.5-36.0 PTT-LA (BEAKER) (test code = 8822532830) 36.4 32.0-41.8 [id number] (BEAKER) (test code = 2610) Damien Malone M.D. ([facility] signature) BASIC METABOLIC [id number] 06:37:51* Test Item Value Reference Range Interpretation Comme nts SODIUM (BEAKER) (test code = 381) 138 meq/L 136-145 POTASSIUM (BEAKER) (test code = 379) 3.7 meq/L 3.5-5.1 CHLORIDE (BEAKER) (test code = 382) 105 meq/L 98-107 CO2 (BEAKER) (test code = 355) 26 meq/L 22-29 BLOOD UREA NITROGEN (BEAKER) (test code = 354) 8 mg/dL 7-21 CREATININE (BEAKER) (test code = 358) 0.68 mg/dL 0.57-1.25 GLUCOSE RANDOM (BEAKER) (test code = 652) 126 mg/dL 70-105 H CALCIUM (BEAKER) (test code = 697) 9.2 mg/dL 8.4-10.2 EGFR (BEAKER) (test code = 1092) 109 mL/min/1.73 sq m Interpretation of eG FR values Stage Description Result G1 Normal or high >=90 G2 Mildly decreased 60-89 G3a Mildly to moderately 45-59 G3b Moderately to severely 30-44 G4 Severly decreased 15-29 G5 Kidney failure <15Reported eGFR is based on the CKD-EPI 2020 equation that does not use a race coefficientEstimated GFR is not as accurate as Creatinine Clearance in predicting glomerular filtration rate. Estimated GFR is not applicable for dialysis patients [employer] L[employer] ID - [id number] 18:46:59* Test Item Value Reference Range Interpretation Comme nts PROTIME (GRAYAKER) (test code = 759) 14.1 seconds 11.9-14.2 INR (BEAKER) (test code = 370) 1.16 <=5.90 PARTIAL THROMBOPLASTIN TIME (BEAKER) (test code = 760) 26.7 seconds 22.5-36.0 RECOMMENDED COUMADIN/WARFARIN INR THERAPY RANGESSTANDARD DOSE: 2.0 - 3.0 Includes: PROPHYLAXIS for venous thrombosis, systemic embolization; TREATMENT for venous thrombosis and/or pulmonary embolus.HIGH RISK: Target INR is 2.5-3.5 for patients with mechanical heart valves.DOUBLE-STRANDED DNA (DSDNA) ANTIBODY 2022-10-24 13:15:18* Test Item Value Reference Range Interpretation Comme nts ANTI-DNA DS (BEAKER) (test c ode = 1055) Negative Negative CORINNE TITER AND [id number] 13:11:11* Test Item Value Reference Range Interpretation Comme nts CORINNE TITER (BEAKER) (test cod e = 1541) :640 CORINNE PATTERN (BEAKER) (test c ode = 1781) Speckled ANTI-NUCLEAR ANTIBODY (CORINNE)2022-10-24 13:10:49* Test Item Value Reference Range Interpretation Comme nts ANTI-NUCLEAR ANTIBODY (CORINNE) (BEAKER) (test code = 418) Positive Negative A Test performed by IFA method.BASIC METABOLIC [id number] 12:14:46* Test Item Value Reference Range Interpretation Comme nts SODIUM (BEAKER) (test code = 381) 138 meq/L 136-145 POTASSIUM (BEAKER) (test code = 379) 3.3 meq/L 3.5-5.1 L CHLORIDE (BEAKER) (test code = 382) 103 meq/L 98-107 CO2 (BEAKER) (test code = 355) 25 meq/L 22-29 BLOOD UREA NITROGEN (BEAKER) (test code = 354) 7 mg/dL 7-21 CREATININE (BEAKER) (test code = 358) 0.80 mg/dL 0.57-1.25 GLUCOSE RANDOM (BEAKER) (test code = 652) 278 mg/dL 70-105 H CALCIUM (BEAKER) (test code = 697) 9.0 mg/dL 8.4-10.2 EGFR (BEAKER) (test code = 1092) 93 mL/min/1.73 sq m Interpretation of eG FR values Stage Description Result G1 Normal or high >=90 G2 Mildly decreased 60-89 G3a Mildly to moderately 45-59 G3b Moderately to severely 30-44 G4 Severly decreased 15-29 G5 Kidney failure <15Reported eGFR is based on the CKD-EPI 2020 equation that does not use a race coefficientEstimated GFR is not as accurate as Creatinine Clearance in predicting glomerular filtration rate. Estimated GFR is not applicable for dialysis patients [employer] Librarian ID - [id number] 12:14:46* Test Item Value Reference Range Interpretation Comme nts MAGNESIUM (BEAKER) (test cod e = 627) 1.7 mg/dL 1.6-2.6 [employer] L[employer] ID - MMCBC (HEMOGRAM ONLY)2022-10-24 11:55:09* Test Item Value Reference Range Interpretation Comme nts WHITE BLOOD CELL COUNT (BEAK ER) (test code = 775) 4.3 K/ L 3.5-10.5 RED BLOOD CELL COUNT (BEAKER ) (test code = 761) 3.98 M/ L 3.93-5.22 HEMOGLOBIN (BEAKER) (test co de = 410) 12.3 GM/DL 11.2-15.7 HEMATOCRIT (BEAKER) (test co de = 411) 35.9 % 34.1-44.9 MEAN CORPUSCULAR VOLUME (JUDIT KER) (test code = 753) 90 fL 79-95 MEAN CORPUSCULAR HEMOGLOBIN (BEAKER) (test code = 751) 30.9 pg 25.6-32.2 MEAN CORPUSCULAR HEMOGLOBIN CONC (BEAKER) (test code = 752) 34.3 GM/DL 32.2-35.5 RED CELL DISTRIBUTION WIDTH (BEAKER) (test code = 412) 11.6 % 11.7-14.4 L PLATELET COUNT (BEAKER) (vish t code = 756) 358 K/CU MM 150-450 MEAN PLATELET VOLUME (BEAKER ) (test code = 754) 8.9 fL 9.4-12.3 L NUCLEATED RED BLOOD CELLS (BEAKER) (test code = 413) 0 /100 WBC 0-0 CARDIOLIPIN ANTIBODIES, IGG AND [id number] 09:12:05* Test Item Value Reference Range Interpretation Comme nts ANTICARDIOLIPIN IGG ANTIBODY (BEAKER) (test code = 712) < GPL <20.0 ANTICARDIOLIPIN IGM ANTIBODY (BEAKER) (test code = 713) < MPL <20.0 Anticardiolipin IgG Result Interpretation: <20.0 GPL Normal>/= 20.0 GPL PositiveAnticardiolipin IgM Result Interpretation: <20.0 MPL Normal>/= 20.0 MPL PositivePROTEIN, RANDOM [id number] 17:09:39* Test Item Value Reference Range Interpretation Comme nts PROTEIN, URINE (BEAKER) (vish t code = 1569) < mg/dL 0-14 [employer] L[employer] ID - ADMINCREATININE, RANDOM [id number] 17:09:21* Test Item Value Reference Range Interpretation Comme nts CREATININE URINE (BEAKER) (t est code = 375) 44.0 mg/dL Reference Range: No NormalsOperator ID - ADMINCOMPLEMENT COMPONENT [id number] 17:00:13* Test Item Value Reference Range Interpretation Comme nts C3 COMPLEMENT (BEAKER) (test code = 393) 112 mg/dL 82-193 [employer] L[employer] ID - ADMINCOMPLEMENT COMPONENT [id number] 17:00:12* Test Item Value Reference Range Interpretation Comme nts C4 COMPLEMENT (BEAKER) (test code = 394) 31 mg/dL 15-57 [employer] L[employer] ID - [id number] 16:00:14* Test Item Value Reference Range Interpretation Comme nts MAGNESIUM (BEAKER) (test cod e = 627) 1.8 mg/dL 1.6-2.6 [employer] L[employer] ID - ADMINBASIC METABOLIC [id number] 16:00:13* Test Item Value Reference Range Interpretation Comme nts SODIUM (BEAKER) (test code = 381) 141 meq/L 136-145 POTASSIUM (BEAKER) (test code = 379) 3.1 meq/L 3.5-5.1 L CHLORIDE (BEAKER) (test code = 382) 105 meq/L 98-107 CO2 (BEAKER) (test code = 355) 28 meq/L 22-29 BLOOD UREA NITROGEN (BEAKER) (test code = 354) 8 mg/dL 7-21 CREATININE (BEAKER) (test code = 358) 0.73 mg/dL 0.57-1.25 GLUCOSE RANDOM (BEAKER) (test code = 652) 168 mg/dL 70-105 H CALCIUM (BEAKER) (test code = 697) 10.0 mg/dL 8.4-10.2 EGFR (BEAKER) (test code = 1092) 103 mL/min/1.73 sq m Interpretation of eG FR values Stage Description Result G1 Normal or high >=90 G2 Mildly decreased 60-89 G3a Mildly to moderately 45-59 G3b Moderately to severely 30-44 G4 Severly decreased 15-29 G5 Kidney failure <15Reported eGFR is based on the CKD-EPI 2020 equation that does not use a race coefficientEstimated GFR is not as accurate as Creatinine Clearance in predicting glomerular filtration rate. Estimated GFR is not applicable for dialysis patients [employer] Librarian ID - ADMINURINALYSIS W/ [id number] 15:42:07* Test Item Value Reference Range Interpretation Comme nts COLOR (BEAKER) (test code = 470) Light Yellow CLARITY (BEAKER) (test code = 469) Clear SPECIFIC GRAVITY UA (BEAKER) (test code = 468) 1.006 1.001-1.035 PH UA (BEAKER) (test code = 467) 6.5 5.0-8.0 PROTEIN UA (BEAKER) (test co de = 464) Negative Negative GLUCOSE UA (BEAKER) (test co de = 365) 150 mg/dL Negative A KETONES UA (BEAKER) (test co de = 371) Negative Negative BILIRUBIN UA (BEAKER) (test code = 462) Negative Negative BLOOD UA (BEAKER) (test code = 461) Negative Negative NITRITE UA (BEAKER) (test co de = 465) Negative Negative LEUKOCYTE ESTERASE UA (BEAKE R) (test code = 466) Negative Negative UROBILINOGEN UA (BEAKER) (te st code = 463) 0.2 0.2-1.0 RBC UA (BEAKER) (test code = 519) 1 /HPF WBC UA (BEAKER) (test code = 520) 1 /HPF SQUAMOUS EPITHELIAL (BEAKER) (test code = 516) 1 /HPF SOURCE(BEAKER) (test code = 2795) Urine, Voided [employer] Librarian ID - [auto][employer] Librarian ID - techCBC (HEMOGRAM ONLY)2022-10-23 15:23:37* Test Item Value Reference Range Interpretation Comme nts WHITE BLOOD CELL COUNT (BEAK ER) (test code = 775) 7.0 K/ L 3.5-10.5 RED BLOOD CELL COUNT (BEAKER ) (test code = 761) 4.78 M/ L 3.93-5.22 HEMOGLOBIN (BEAKER) (test co de = 410) 14.5 GM/DL 11.2-15.7 HEMATOCRIT (BEAKER) (test co de = 411) 42.7 % 34.1-44.9 MEAN CORPUSCULAR VOLUME (JUDIT KER) (test code = 753) 89 fL 79-95 MEAN CORPUSCULAR HEMOGLOBIN (BEAKER) (test code = 751) 30.3 pg 25.6-32.2 MEAN CORPUSCULAR HEMOGLOBIN CONC (BEAKER) (test code = 752) 34.0 GM/DL 32.2-35.5 RED CELL DISTRIBUTION WIDTH (BEAKER) (test code = 412) 11.6 % 11.7-14.4 L PLATELET COUNT (BEAKER) (vish t code = 756) 401 K/CU MM 150-450 MEAN PLATELET VOLUME (BEAKER ) (test code = 754) 9.7 fL 9.4-12.3 NUCLEATED RED BLOOD CELLS (BEAKER) (test code = 413) 0 /100 WBC 0-0 BASIC METABOLIC [id number] 08:37:08* Test Item Value Reference Range Interpretation Comme nts SODIUM (BEAKER) (test code = 381) 142 meq/L 136-145 POTASSIUM (BEAKER) (test code = 379) 3.3 meq/L 3.5-5.1 L Specimen slightl y hemolyzed CHLORIDE (BEAKER) (test code = 382) 104 meq/L 98-107 CO2 (BEAKER) (test code = 355) 32 meq/L 22-29 H BLOOD UREA NITROGEN (BEAKER) (test code = 354) 6 mg/dL 7-21 L CREATININE (BEAKER) (test code = 358) 0.63 mg/dL 0.57-1.25 Specimen slightl y hemolyzed GLUCOSE RANDOM (BEAKER) (test code = 652) 145 mg/dL 70-105 H CALCIUM (BEAKER) (test code = 697) 9.2 mg/dL 8.4-10.2 EGFR (BEAKER) (test code = 1092) 111 mL/min/1.73 sq m Interpretation of eG FR values Stage Description Result G1 Normal or high >=90 G2 Mildly decreased 60-89 G3a Mildly to moderately 45-59 G3b Moderately to severely 30-44 G4 Severly decreased 15-29 G5 Kidney failure <15Reported eGFR is based on the CKD-EPI 2020 equation that does not use a race coefficientEstimated GFR is not as accurate as Creatinine Clearance in predicting glomerular filtration rate. Estimated GFR is not applicable for dialysis patients [id number] 08:36:52* Test Item Value Reference Range Interpretation Comme nts MAGNESIUM (BEAKER) (test code = 627) 1.8 mg/dL 1.6-2.6 Specimen sligh tly hemolyzed CBC (HEMOGRAM ONLY)2022-10-23 05:13:32* Test Item Value Reference Range Interpretation Comme nts WHITE BLOOD CELL COUNT (BEAK ER) (test code = 775) 6.4 K/ L 3.5-10.5 RED BLOOD CELL COUNT (BEAKER ) (test code = 761) 4.45 M/ L 3.93-5.22 HEMOGLOBIN (BEAKER) (test co de = 410) 13.7 GM/DL 11.2-15.7 HEMATOCRIT (BEAKER) (test co de = 411) 40.0 % 34.1-44.9 MEAN CORPUSCULAR VOLUME (JUDIT KER) (test code = 753) 90 fL 79-95 MEAN CORPUSCULAR HEMOGLOBIN (BEAKER) (test code = 751) 30.8 pg 25.6-32.2 MEAN CORPUSCULAR HEMOGLOBIN CONC (BEAKER) (test code = 752) 34.3 GM/DL 32.2-35.5 RED CELL DISTRIBUTION WIDTH (BEAKER) (test code = 412) 11.8 % 11.7-14.4 PLATELET COUNT (BEAKER) (vish t code = 756) 395 K/CU MM 150-450 MEAN PLATELET VOLUME (BEAKER ) (test code = 754) 9.0 fL 9.4-12.3 L NUCLEATED RED BLOOD CELLS (BEAKER) (test code = 413) 0 /100 WBC 0-0 CORINNE TITER AND [id number] 13:38:34* Test Item Value Reference Range Interpretation Comme nts CORINNE TITER (BEAKER) (test cod e = 1541) :640 CORINNE PATTERN (BEAKER) (test c ode = 1781) Speckled ANTI-NUCLEAR ANTIBODY (CORINNE)2022-10-22 13:38:16* Test Item Value Reference Range Interpretation Comme nts ANTI-NUCLEAR ANTIBODY (CORINNE) (BEAKER) (test code = 418) Positive Negative A Test performed by IFA method.SARS-COV2/INFLUENZA A&B [id number] 11:12:03* Test Item Value Reference Range Interpretation Comme nts SARS-COV2/RT-PCR (test code = 6325636) Negative Negative The SARS-CoV-2 t arget nucleic acids are not detected in this specimen. Negative results do not preclude SARS-CoV-2 infection and should not be used as the sole basis for patient management decisions. Negative results must be combined with clinical observations, patient history, and epidemiological information. A false negative result may occur if a specimen is improperly collected, transported or handled. This SARS CoV-2 test is a rapid, real-time RT-PCR test intended for the qualitative detection of nucleic acid from SARS-CoV-2 in a nasopharyngeal swab specimen collected from individuals suspected of COVID-19 by their healthcare provider. INFLUENZA A RT-PCR (test code = 1783560) Negative Negative The Flu A target nucleic acids are not detected in this specimen. INFLUENZA B RT-PCR (test code = 8470101) Negative Negative The Flu B target nucleic acids are not detected in this specimen. The presence of SARS-CoV-2/FLU/RSV viral nucleic acids cannot rule out co- infections or disease caused by other viral or bacterial pathogens. As with any molecular test, mutations within the target regions of the Xpert Xpress SARS-CoV-2/Flu/RSV test could affect primer and/or probe binding resulting in failure to detect the presence of virus or the virus being detected less predictably. False negative results may occur if the virus is present at levels below the analytical limit of detection inthis specimen.This Xpert Xpress SARS-CoV-2/Flu/RSV test is a rapid, real-time RT-PCR test intended for the qualitative detection of nucleic acid from Xpert Xpress SARS-CoV-2/Flu/RSV in a nasopharyngeal swab specimen collected from individuals suspected of Xpert Xpress SARS-CoV-2/Flu/RSV by their healthcare provider. Results from lisa Xpert Xpress SARS-CoV-2/Flu/RSV test should be correlated with the clinical history, epidemiological data, and other data available to the clinician evaluating the p atient. Viral nucleic acid may persist in vivo, independent of virus viability. Detection of analyte target(s) does not imply that the corresponding virus(es) are infectious or are the causative agents for clinical symptoms.This test has not been Food and Drug Administration (FDA) cleared or approved and has been authorized by FDA under an Emergency Use Authorization (EUA). This EUA will be effective until the declaration that circumstances exist justifying the authorization of the emergency use of in vitro diagnostic tests for detection and/or diagnosis of COVID-19 is terminated under Section 564(b)(2) of the Act or the EUA is revoked under Section 564(g) of the Act.Fact Sheet for Healthcare Providers:https://www.[employer]/Documents/Xpert%20Xpress%20SARS%20CoV-2/Fact%2 0Sheets/302-9416%78CZSR-KON-8%20HEALTHCARE%20PROVIDERS%20FACT%20SHEET.pdfFact Sheet for Healthcare Patients:https://ww w.[employer]/Documents/Xpert%20Xpress%20SARS%20Cov-2/Fact%20Sheets/302-3801%20S ARS-COV-2%20PATIENT%20FACT%20SHEET.pdfBASI METABOLIC [id number] 15:42:07* Test Item Value Reference Range Interpretation Comme nts SODIUM (BEAKER) (test code = 381) 142 meq/L 136-145 POTASSIUM (BEAKER) (test code = 379) 3.5 meq/L 3.5-5.1 CHLORIDE (BEAKER) (test code = 382) 107 meq/L 98-107 CO2 (BEAKER) (test code = 355) 26 meq/L 22-29 BLOOD UREA NITROGEN (BEAKER) (test code = 354) 10 mg/dL 7-21 CREATININE (BEAKER) (test code = 358) 0.77 mg/dL 0.57-1.25 GLUCOSE RANDOM (BEAKER) (test code = 652) 193 mg/dL 70-105 H CALCIUM (BEAKER) (test code = 697) 9.5 mg/dL 8.4-10.2 EGFR (BEAKER) (test code = 1092) 97 mL/min/1.73 sq m Interpretation of eG FR values Stage Description Result G1 Normal or high >=90 G2 Mildly decreased 60-89 G3a Mildly to moderately 45-59 G3b Moderately to severely 30-44 G4 Severly decreased 15-29 G5 Kidney failure <15Reported eGFR is based on the CKD-EPI 2020 equation that does not use a race coefficientEstimated GFR is not as accurate as Creatinine Clearance in predicting glomerular filtration rate. Estimated GFR is not applicable for dialysis patients [employer] Libr[employer] ID - [id number] 15:42:07* Test Item Value Reference Range Interpretation Comme nts MAGNESIUM (BEAKER) (test cod e = 627) 1.8 mg/dL 1.6-2.6 [employer] L[employer] ID - [id number] 12:55:11* Test Item Value Reference Range Interpretation Comme nts RPR SCREEN (BEAKER) (test co de = 420) Nonreactive Nonreactive HEMOGLOBIN [id number] 10:43:06* Test Item Value Reference Range Interpretation Comme nts HEMOGLOBIN A1C ELECTROPHORESIS (BEAKER) (test code = 3811) 6.3 % See_Comment H [Automated me ssage] The system which generated this result transmitted reference range: <=5.6%. The reference range was not used to interpret this result as normal/abnormal. "The A1c is measured using a [facility]-certified method. HbA1c value equal to or greater than 6.5% as the diagnosis cutoff for diabetes. An HbA1c value of 5.7- 6.4% indicates increased risk for diabetes (prediabetes)."[employer] Librarian ID - ADMOperator ID - [id number] 08:39:23* Test Item Value Reference Range Interpretation Comme nts PHOSPHORUS (BEAKER) (test co de = 604) 3.2 mg/dL 2.3-4.7 [employer] Librarian ID - JSLIPID [id number] 08:39:23* Test Item Value Reference Range Interpretation Comme nts TRIGLYCERIDES (BEAKER) (test code = 540) 64 mg/dL CHOLESTEROL (BEAKER) (test c ode = 631) 140 mg/dL HDL CHOLESTEROL (BEAKER) (te st code = 976) 40 mg/dL LDL CHOLESTEROL CALCULATED ( BEAKER) (test code = 633) 87 mg/dL Triglyceride Reference Range: Low Risk <150 Borderline 150-199 High Risk 200-499 Very High Risk >=500Cholesterol Reference Range: Low Risk <200 Borderline 200-239 High Risk >240HDL Cholesterol Reference Range: Low Risk >=60 High Risk <40LDL Cholesterol Reference Range: Optimal <100 Near Optimal 100-129 Borderline 130-159 High 160-189 Very High >=190 [employer] School Librarian ID - JSHEPATIC FUNCTION [id number] 08:39:23* Test Item Value Reference Range Interpretation Comme nts TOTAL PROTEIN (BEAKER) (test code = 770) 7.3 gm/dL 6.0-8.3 ALBUMIN (BEAKER) (test code = 1145) 4.1 g/dL 3.5-5.0 BILIRUBIN TOTAL (BEAKER) (te st code = 377) 0.8 mg/dL 0.2-1.2 BILIRUBIN DIRECT (BEAKER) (t est code = 706) 0.4 mg/dL 0.1-0.5 ALKALINE PHOSPHATASE (BEAKER ) (test code = 346) 55 U/L 40-150 AST (SGOT) (BEAKER) (test co de = 353) 25 U/L 5-34 ALT (SGPT) (BEAKER) (test co de = 347) 15 U/L 6-55 [employer] Librarian ID - JSBASIC METABOLIC [id number] 08:39:22* Test Item Value Reference Range Interpretation Comme nts SODIUM (BEAKER) (test code = 381) 141 meq/L 136-145 POTASSIUM (BEAKER) (test code = 379) 3.0 meq/L 3.5-5.1 L CHLORIDE (BEAKER) (test code = 382) 107 meq/L 98-107 CO2 (BEAKER) (test code = 355) 26 meq/L 22-29 BLOOD UREA NITROGEN (BEAKER) (test code = 354) 10 mg/dL 7-21 CREATININE (BEAKER) (test code = 358) 0.74 mg/dL 0.57-1.25 GLUCOSE RANDOM (BEAKER) (test code = 652) 125 mg/dL 70-105 H CALCIUM (BEAKER) (test code = 697) 9.4 mg/dL 8.4-10.2 EGFR (BEAKER) (test code = 1092) 102 mL/min/1.73 sq m Interpretation of eG FR values Stage Description Result G1 Normal or high >=90 G2 Mildly decreased 60-89 G3a Mildly to moderately 45-59 G3b Moderately to severely 30-44 G4 Severly decreased 15-29 G5 Kidney failure <15Reported eGFR is based on the CKD-EPI 2020 equation that does not use a race coefficientEstimated GFR is not as accurate as Creatinine Clearance in predicting glomerular filtration rate. Estimated GFR is not applicable for dialysis patients [employer] Librarian ID - [id number] 08:39:22* Test Item Value Reference Range Interpretation Comme nts MAGNESIUM (BEAKER) (test cod e = 627) 1.9 mg/dL 1.6-2.6 [employer] Librarian ID - JSVITAMIN [id number] 08:30:36* Test Item Value Reference Range Interpretation Comme nts VITAMIN B12 (BEAKER) (test c ode = 774) 347 pg/mL 213-816 [employer] Librarian ID - MARCOHIV-1 ANTIGEN WITH HIV-1/2 [id number] 07:07:44* Test Item Value Reference Range Interpretation Comme nts HIV-1 ANTIGEN WITH HIV 1\\T\\2 ANTIBODY (2) (BEAKER) (test code = 2586) Nonreactive Nonreactive [employer] Librarian ID - JSTSH/FREE T4 IF [id number] 07:07:38* Test Item Value Reference Range Interpretation Comme nts THYROID STIMULATING HORMONE (BEAKER) (test code = 772) 0.733 uIU/mL 0.350-4.940 [employer] School Librarian ID - JSPROTHROMBIN TIME/[id number] 06:24:34* Test Item Value Reference Range Interpretation Comme nts PROTIME (BEAKER) (test code = 759) 15.1 seconds 11.9-14.2 H INR (BEAKER) (test code = 370) 1.22 <=5.90 RECOMMENDED COUMADIN/WARFARIN INR THERAPY RANGESSTANDARD DOSE: 2.0 - 3.0 Includes: PROPHYLAXIS for venous thrombosis, systemic embolization; TREATMENT for venous thrombosis and/or pulmonary embolus.HIGH RISK: Target INR is 2.5-3.5 for patients with mechanical heart valves.CBC W/PLT COUNT & AUTO DIFFERENTIAL 2022-10-21 06:07:16* Test Item Value Reference Range Interpretation Comme nts WHITE BLOOD CELL COUNT (BEAK ER) (test code = 775) 6.2 K/ L 3.5-10.5 RED BLOOD CELL COUNT (BEAKER ) (test code = 761) 4.39 M/ L 3.93-5.22 HEMOGLOBIN (BEAKER) (test co de = 410) 13.4 GM/DL 11.2-15.7 HEMATOCRIT (BEAKER) (test co de = 411) 39.7 % 34.1-44.9 MEAN CORPUSCULAR VOLUME (JUDIT KER) (test code = 753) 90 fL 79-95 MEAN CORPUSCULAR HEMOGLOBIN (BEAKER) (test code = 751) 30.5 pg 25.6-32.2 MEAN CORPUSCULAR HEMOGLOBIN CONC (BEAKER) (test code = 752) 33.8 GM/DL 32.2-35.5 RED CELL DISTRIBUTION WIDTH (BEAKER) (test code = 412) 11.9 % 11.7-14.4 PLATELET COUNT (BEAKER) (vish t code = 756) 422 K/CU MM 150-450 MEAN PLATELET VOLUME (BEAKER ) (test code = 754) 9.2 fL 9.4-12.3 L NUCLEATED RED BLOOD CELLS (BEAKER) (test code = 413) 0 /100 WBC 0-0 NEUTROPHILS RELATIVE PERCENT (BEAKER) (test code = 429) 50 % LYMPHOCYTES RELATIVE PERCENT (BEAKER) (test code = 430) 37 % MONOCYTES RELATIVE PERCENT (BEAKER) (test code = 431) 10 % EOSINOPHILS RELATIVE PERCENT (BEAKER) (test code = 432) 1 % BASOPHILS RELATIVE PERCENT (BEAKER) (test code = 437) 1 % NEUTROPHILS ABSOLUTE COUNT (BEAKER) (test code = 670) 3.13 K/ L 1.56-6.13 LYMPHOCYTES ABSOLUTE COUNT (BEAKER) (test code = 414) 2.31 K/ L 1.18-3.74 MONOCYTES ABSOLUTE COUNT (BE NNAMDI) (test code = 415) 0.64 K/ L 0.24-0.36 H EOSINOPHILS ABSOLUTE COUNT (BEAKER) (test code = 416) 0.09 K/ L 0.04-0.36 BASOPHILS ABSOLUTE COUNT (BE NNAMDI) (test code = 417) 0.04 K/ L 0.01-0.08 IMMATURE GRANULOCYTES-RELATI VE PERCENT (BEAKER) (test code = 2806) 0.30 % 0.00-1.00
[2025-03-13] MEDS ORDERED: ALBUTEROL 2.5 MG/3 ML NEB SOL ONE (01:13)
[2025-03-13] MEDS ORDERED: IPRATROPIUM BROM 0.5MG/2.5ML ONE (01:13)
[2025-03-13] MEDS ORDERED: METHYLPREDNISOLONE 125 MG INJ ONE (01:14)
[2025-03-13] MEDS ORDERED: ASPIRIN 81 MG CHEWABLE TABLET ONE (01:14)
[2025-03-13 01:49] LABS: Absolute Lymphocytes (CBC) 2.6 K/uL (0.7-4.9); Hematocrit 45.9 % (36.0-45.0); Hemoglobin 15.9 g/dL (12.0-15.0); MCH 31.7 pg (27.0-35.0); MCHC 34.6 g/dL (32.0-36.0); MCV 91.9 fL (80-100); MPV 7.2 fL (7.6-11.3); Nucleated RBC Absolute Count 0.0 (0-0); Nucleated Red Blood Cells % 0.1 % (0-0); RBC Red Blood Cell Count 5.00 M/uL (3.86-4.86); White Blood Count 8.00 thou/uL (4.3-10.9)
[2025-03-13 01:58] LABS: D-Dimer 0.764 FEUug/mL (0-0.500); PT Prothrombin Time 12.8 SECONDS (10-13.0); Protime INR 1.14
[2025-03-13 02:10] LABS: ALT/SGPT 18.0 U/L (13-56); AST/SGOT 16.0 U/L (15-37); Albumin 3.7 g/dL (3.4-5.0); Albumin/Globulin Ratio 0.8 (1.1-1.8); Alkaline Phosphatase 87.0 U/L (45-117); Anion Gap 9.6 mEq/L (5.0-15.0); BUN Blood Urea Nitrogen 5.0 mg/dL (7-18); Bilirubin Indirect, Calculated 0.3 mg/dL (0.2-0.8); Globulin 4.5 g/dL (2.3-3.5); Glucose Level 120.0 mg/dL (74-106); Influenza A Ag Negative; Influenza B Ag Negative; Magnesium 2.2 mg/dL (1.6-2.4); NT PRO-BNP 447.0 pg/mL (<125); Potassium 3.6 mEq/L (3.5-5.1); SARS-CoV-2 Antigen Rapid Res Negative (Negative); Troponin High Sensitivity 10.7 pg/mL (<58.9)
--- NOTE | 2025-03-13 04:33 | RAD REPORT ---
CTA THORAX - PULMONARY ARTERIES HISTORY: Suspected pulmonary embolus. COMPARISON: None. TECHNIQUE: Intravenous low osmolar contrast. Coronal and sagittal reformations including 3D maxim um intensity projections. This exam was performed according to our departmental dose-optimization program, which includes autom ated exposure control, adjustment of the mA and/or kV according to patient size and/or use of iterative reconstruction technique. FINDINGS: PULMONARY ARTERIAL SYSTEM: Contrast bolus is adequate. No CT evidence for pulmonary embolism. CARDIAC: Normal. AORTA/VASCULAR: No aneurysm. LYMPH NODES/MEDIASTINUM: No thoracic adenopathy. CENTRAL AIRWAYS: Central airways are patent. LUNGS: No pulmonary infiltrates or masses. PLEURA: Normal. ESOPHAGUS: Collapsed and not well assessed by CT, without obvious abnormality. THYROID: Negative, where seen. CHEST WALL: Normal. UPPER ABDOMEN: Normal. THORACIC SKELETAL: No acute finding. ADDITIONAL CHEST FINDINGS: None. IMPRESSION: 1. No evidence of acute pulmonary embolus. 2. No acute thoracic findings. Electronically signed by: Simeon Villareal MD 03/13/2025 04:26 AM CDT TYG Due to temporary technical issues with the PACS/[employer] reporting system, reports are being fariba d by the in-house radiologist without review as a courtesy to ensure prompt reporting the interpreting radiologist is fully responsible for the content of the report. Transcribed Date/Time: 03/13/2025 4:33 AM
--- NOTE | 2025-03-13 04:37 | EDPHYS ---
Physician Documentation [facility] Name: Jana Harrington Age: 49 yrs Sex: Female : 1975 Arrival Date: 03/12/2025 Time: 23:38 Bed 5 Private MD: ED Physician Tuan Ward HPI: 03/13 01:07 This 49 yrs old Black Female presents to ER via Ambulatory with complaints of Cough, cp Congestion, Shortness Of Breath. 01:07 The patient or guardian reports cough, difficulty breathing. Onset: The cp symptoms/episode began/occurred yesterday. 01:07 Severity of symptoms: in the emergency department the symptoms are actually worse. cp Associated signs and symptoms: Pertinent negatives: diarrhea, fever, vomiting. 01:08 The patient or guardian reports flu symptoms, for past several days. 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 - Infectious Disease History:: Denies. - Social history:: Smoking status: Patient reports the use of cigarette tobacco products, smokes one-half pack cigarettes per day, Patient uses alcohol, occasionally. Smoking status: smokes "weed" 2x day . ROS: 01:10 Constitutional: Negative for body aches, chills, fever, poor PO intake, cp 01:10 Eyes: Negative for injury, pain, redness, and discharge, cp 01:10 ENT: Negative for drainage from ear(s), ear pain, difficulty swallowing, difficulty handling secretions, 01:10 Cardiovascular: Negative for edema, palpitations, 01:10 Respiratory: Positive for cough, "sounds productive", shortness of breath, at rest. 01:10 Abdomen/GI: Negative for abdominal pain, vomiting, diarrhea, constipation, 01:10 Neuro: Negative for altered mental status, 01:10 All other systems are negative, Exam: 01:15 Constitutional: The patient appears in no acute distress, alert, awake, cp non-diaphoretic, non-toxic, well developed, well nourished, uncomfortable, difficulty speaking in full sentences 01:15 Head/Face: Normocephalic, atraumatic. cp 01:15 Eyes: Periorbital structures: appear normal, Conjunctiva: normal, no exudate, no injection, Sclera: no appreciated abnormality, Lids and lashes: appear normal, bilaterally, 01:15 ENT: External ear(s): are unremarkable, Nose: is normal, Mouth: Lips: moist, Oral mucosa: moist, Posterior pharynx: Airway: no evidence of obstruction, patent, 01:15 Neck: ROM/movement: is normal, is supple, without pain, no range of motions limitations, 01:15 Chest/axilla: Inspection: normal, Palpation: crepitus, is not appreciated, tenderness, is not appreciated, 01:15 Cardiovascular: Rate: tachycardic, Rhythm: regular, Edema: is not appreciated, JVD: is not appreciated, 01:15 Respiratory: mild respiratory distress is noted, Respirations: labored breathing, that is mild, Breath sounds: decreased breath sounds, that are mild, throughout, stridor, is not appreciated, wheezing: that is mild, is heard diffusely, 01:15 Abdomen/GI: Inspection: abdomen appears normal, Palpation: abdomen is soft and non-tender, in all quadrants, 01:15 Back: pain, is absent, ROM is normal, Vital Signs: 00:05 BP 167 / 123; Pulse 107; Resp 18; Temp 97.8; Pulse Ox 98% on R/A; kb4 01:46 BP 150 / 97; Pulse 98; Resp 18; Pulse Ox 100% on R/A; mf3 03:04 BP 131 / 64; Pulse 98; Resp 18; Pulse Ox 100% on R/A; mf3 05:04 BP 137 / 72; Pulse 91; Resp 17 S; Pulse Ox 100% on R/A; lg3 Coffeen Coma Score: 01:46 Eye Response: spontaneous(4). Motor Response: obeys commands(6). Verbal Response: mf3 oriented(5). Total: 15. MDM: 01:45 Differential Diagnosis: Bronchitis Influenza Viral Syndrome Pneumonia Other pulmonary cp embolism. 03:10 I considered the following discharge prescriptions or medication management in the cp emergency department Medications were administered in the Emergency Department. See MAR. 03:10 Care significantly affected by the following chronic conditions: Hypertension. Response cp to treatment: the patient's symptoms have mildly improved after treatment. Awaiting: CT scan results. Transition of care: After a detail discussion of the patient's case, care is transferred to Tuan Ward DO. 04:06 Medical Screening Exam initiated tt7 07:57 Data reviewed: vital signs, nurses notes, lab test result(s), EKG, radiologic studies, tt7 CT scan, plain films. ED course: I have reviewed and independently interpreted the patient's EKG performed on 03/13/2025 at 0212. On my interpretation, sinus rhythm with sinus arrhythmia, ventricular rate 83 bpm, normal axis, normal QRS interval, normal ST segments, no STEMI. ED course: 49-year-old female with shortness of breath and cough, vital signs stable, no acute respiratory distress, dyspnea workup initiated, patient had elevated D-dimer so CT angio of the chest was performed, no pulmonary embolism identified, no acute findings on CT of the chest, laboratory studies all reassuring, emergency department evaluation is reassuring. I do not suspect life-threatening process. Patient is stable and not in need of emergent medical intervention. I had a detailed discussion with the patient regarding the historical points, exam findings, emergency department evaluation, diagnostic results, and the discharge diagnosis. I discussed outpatient management of the patient's condition. I discussed the need for outpatient follow-up with primary care and relevant specialist. I discussed return precautions including the need to return to the ED if symptoms do not improve, worsen, or if there are any questions or concerns that arise at home. The patient was discharged in stable condition. 03/13 01:07 Order name: Basic Metabolic Panel; Complete Time: 02:12 cp 03/13 02:12 Interpretation: Normal except: CL 108; GLUC 120; BUN 5. cp 03/13 01:07 Order name: CBC with Diff; Complete Time: 02:12 cp 03/13 02:12 Interpretation: Normal except: RBC 5.00; HGB 15.9; HCT 45.9; PLT 491; MPV 7.2. cp 03/13 01:07 Order name: D-Dimer; Complete Time: 02:12 cp 03/13 02:13 Interpretation: Abnormal: D-DIMER 0.764. cp 03/13 01:07 Order name: LFT's; Complete Time: 02:12 cp 03/13 01:07 Order name: Magnesium; Complete Time: 02:12 cp 03/13 01:07 Order name: NT PRO-BNP; Complete Time: 02:12 cp 03/13 01:07 Order name: PT-INR; Complete Time: 02:12 cp 03/13 01:07 Order name: Troponin HS; Complete Time: 02:12 cp 03/13 01:07 Order name: COVID-19 Ag + Flu A+B Ag; Complete Time: 02:12 cp 03/13 01:07 Order name: XRAY Chest (1 view) cp 03/13 02:13 Order name: CT Chest For PE Angio cp 03/13 01:07 Order name: EKG; Complete Time: 01:08 cp 03/13 01:07 Order name: Cardiac monitoring; Complete Time: 01:43 cp 03/13 01:07 Order name: EKG - Nurse/Tech; Complete Time: 02:11 cp 03/13 01:07 Order name: IV Saline Lock; Complete Time: 01:43 cp 03/13 01:07 Order name: Labs collected and sent; Complete Time: 01:43 cp 03/13 01:07 Order name: O2 Per Protocol; Complete Time: 01:43 cp 03/13 01:07 Order name: O2 Sat Monitoring; Complete Time: 01:43 cp Administered Medications: 01:43 Drug: Aspirin PO Chewable Tablet 324 mg PO once; 81 mg tablets x 4 Route: PO; mf3 05:05 Follow up: Response: No adverse reaction lg3 01:43 Drug: DuoNeb Nebulize (2.5 mg - 0.5 mg) 3 ml Nebulizer once Route: Nebulizer; mf3 05:05 Follow up: Response: No adverse reaction; Marked relief of symptoms lg3 01:43 Drug: MethylPrednisoLONE IVP 125 mg IVP once Route: IVP; Site: left antecubital; mf3 05:05 Follow up: Response: No adverse reaction lg3 Disposition: 07:58 Co-signature as Attending Physician, Tuan Ward DO. tt7 Disposition Summary: 03/13/25 04:37 Discharge Ordered Notes: Location: Home tt7 Problem: new tt7 Symptoms: have improved tt7 Condition: Stable tt7 Diagnosis - Dyspnea tt7 - Cough tt7 Followup: tt7 - With: Emergency Department - When: As needed - Reason: Followup: tt7 - With: Private Physician - When: 1 - 2 days - Reason: Recheck today's complaints, Re-evaluation by your physician Discharge Instructions: - Discharge Summary Sheet tt7 - Cough, Adult, Vogk-qv-Lnve tt7 Forms: - Medication Reconciliation Form tt7 - Antibiotic Education tt7 - Prescription Opioid Use tt7 - Patient Portal Instructions tt7 - Leadership Thank You Letter tt7 Signatures: Dispatcher [employer] EDMS Brown Payan PA-C PA-C cp Bowen, Kayla RN RN kb4 Pearl Cárdenas RN RN mf3 Tuan Ward, DO tt7 Alma Rosa Aguila RN lg3 Corrections: (The following items were deleted from the chart) 00:07 00:05 Allergies: Unable to obtain; kb4 kb4 00:07 00:05 PMHx: Schizophrenia; kb4 kb4 00:07 00:05 PMHx: Bipolar disorder; kb4 kb4
--- NOTE | 2025-03-13 04:37 | ER ---
Nurse's Notes [facility] Name: Jana Harrington Age: 49 yrs Sex: Female : 1975 Arrival Date: 03/12/2025 Time: 23:38 Bed 5 Private MD: Diagnosis: Dyspnea;Cough Presentation: 03/13 00:02 Chief complaint: Patient states: pt c/o difficulty breathing associated with flu like kb4 symptoms, SOB started today, Flu like symptoms for several days. Coronavirus screen: At this time, unable to obtain information related to travel outside the [place] Ebola Screen: No symptoms or risks identified at this time. Initial Sepsis Screen: Does the patient meet any 2 criteria? No. Patient's initial sepsis screen is negative. Does the patient have a suspected source of infection? No. Patient's initial sepsis screen is negative. Risk Assessment: Do you want to hurt yourself or someone else? Patient reports no desire to harm self or others. Onset of symptoms was March 12, 2025 at 08:00. 00:02 Method Of Arrival: Ambulatory 4 00:02 Acuity: ZAKI 2 kb4 Triage Assessment: 00:05 General: Appears distressed, uncomfortable, ill, Behavior is calm, cooperative. Pain: kb4 Denies pain. Respiratory: Airway is patent Respiratory effort is even, unlabored, Respiratory pattern is regular, symmetrical. [employer] LATHE: 00:05 LMP 03/13/2025, unknown kb4 Historical: - Allergies: 00:05 NKDA; kb4 - Home Meds: 00:05 None [Active]; kb4 - PMHx: 00:05 Hypertensive disorder; kb4 - Immunization history:: Adult Immunizations up to date, . - Infectious Disease History:: Denies. - Social history:: Smoking status: Patient reports the use of cigarette tobacco products, smokes one-half pack cigarettes per day, Patient uses alcohol, occasionally. Smoking status: smokes "weed" 2x day . Screenin:20 [facility] ED Fall Risk Assessment (Adult) History of falling in the last 3 months, mf3 including since admission No falls in past 3 months (0 pts) Confusion or Disorientation No (0 pts) Intoxicated or Sedated No (0 pts) Impaired Gait No (0 pts) Mobility Assist Device Used No (0 pt) Altered Elimination No (0 pt) Score/Fall Risk Level 0 - 2 = Low Risk Oriented to surroundings, Hourly rounding (assess needs \\T\\ fall precautionary measures) done. 00:20 Abuse screen: Denies threats or abuse. Denies injuries from another. Nutritional mf3 screening: No deficits noted. Tuberculosis screening: No symptoms or risk factors identified. Never had TB. Assessment: 00:15 General: Appears distressed, uncomfortable, Behavior is agitated. Pain: Denies pain. mf3 Neuro: Level of Consciousness is awake, alert, obeys commands, Oriented to person, place, time, situation, Appropriate for age. Cardiovascular: Capillary refill < 3 seconds. Respiratory: Airway is patent Trachea midline Respiratory effort is labored, Breath sounds with wheezes bilaterally. GI: No signs and/or symptoms were reported involving the gastrointestinal system. : No signs and/or symptoms were reported regarding the genitourinary system. Derm: Skin is intact, is healthy with good turgor, Skin is dry. 01:46 Reassessment: Patient and/or family updated on plan of care and expected duration. Pain mf3 level reassessed. Patient is alert, oriented x 3, equal unlabored respirations, skin warm/dry/pink. Patient states feeling better. Patient states symptoms have improved. 03:04 Reassessment: Patient and/or family updated on plan of care and expected duration. Pain mf3 level reassessed. Patient is alert, oriented x 3, equal unlabored respirations, skin warm/dry/pink. Patient states feeling better. 05:04 Reassessment: Patient appears in no apparent distress at this time. No changes from lg3 previously documented assessment. Patient and/or family updated on plan of care and expected duration. Pain level reassessed. Patient is alert, oriented x 3, equal unlabored respirations, skin warm/dry/pink. Patient states feeling better. Patient states symptoms have improved. Vital Signs: 00:05 BP 167 / 123; Pulse 107; Resp 18; Temp 97.8; Pulse Ox 98% on R/A; kb4 01:46 BP 150 / 97; Pulse 98; Resp 18; Pulse Ox 100% on R/A; mf3 03:04 BP 131 / 64; Pulse 98; Resp 18; Pulse Ox 100% on R/A; mf3 05:04 BP 137 / 72; Pulse 91; Resp 17 S; Pulse Ox 100% on R/A; lg3 [place] Coma Score: 01:46 Eye Response: spontaneous(4). Motor Response: obeys commands(6). Verbal Response: mf3 oriented(5). Total: 15. ED Course: 03/12 23:40 Patient arrived in ED. im 03/13 00:05 Triage completed. kb4 00:05 Arm band placed on right wrist. kb4 00:18 Brown Payan PA-C is PHCP. cp 00:18 Tuan Ward DO is Attending Physician. cp 00:20 Patient has correct armband on for positive identification. Bed in low position. Call mf3 light in reach. Side rails up X2. Provided Education on: educated on plan of care. 00:20 No provider procedures requiring assistance completed. Inserted saline lock: 22 gauge mf3 in left antecubital area, using aseptic technique. Blood collected. Flushed with 10 mL NS. 01:09 Pearl Cárdenas, RN is Primary Nurse. mf3 01:29 XRAY Chest (1 view) In Process Unspecified. EDMS 01:43 Magnesium Sent. mf3 01:43 Troponin HS Sent. mf3 01:43 NT PRO-BNP Sent. mf3 01:43 PT-INR Sent. mf3 01:43 LFT's Sent. mf3 01:43 D-Dimer Sent. mf3 01:43 CBC with Diff Sent. mf3 01:43 Basic Metabolic Panel Sent. mf3 01:43 COVID-19 Ag + Flu A+B Ag Sent. mf3 03:31 CT Chest For PE Angio In Process Unspecified. EDMS 05:06 IV discontinued, intact, bleeding controlled, No redness/swelling at site. Pressure lg3 dressing applied. Administered Medications: 01:43 Drug: Aspirin PO Chewable Tablet 324 mg PO once; 81 mg tablets x 4 Route: PO; mf3 05:05 Follow up: Response: No adverse reaction lg3 01:43 Drug: DuoNeb Nebulize (2.5 mg - 0.5 mg) 3 ml Nebulizer once Route: Nebulizer; mf3 05:05 Follow up: Response: No adverse reaction; Marked relief of symptoms lg3 01:43 Drug: MethylPrednisoLONE IVP 125 mg IVP once Route: IVP; Site: left antecubital; mf3 05:05 Follow up: Response: No adverse reaction lg3 Medication: 01:45 VIS not applicable for this client. mf3 Outcome: 04:37 Discharge ordered by . tt7 05:06 Discharged to home ambulatory, with family, lg3 05:06 Condition: stable 05:06 Discharge instructions given to patient, Instructed on discharge instructions, follow up and referral plans. Demonstrated understanding of instructions, follow-up care, 05:06 Patient left the ED. lg3 Signatures: Dispatcher [employer] EDMS Brown Payan PA-C PA-C cp Able, Lacie, RN RN lg3 Florence Underwood Kayla RN RN kb4 Pearl Cárdenas RN RN mf3 Tuan Ward DO DO tt7 Corrections: (The following items were deleted from the chart) 00:07 00:05 Allergies: Unable to obtain; kb4 kb4 00:07 00:05 PMHx: Schizophrenia; kb4 kb4 00:07 00:05 PMHx: Bipolar disorder; kb4 kb4
[2025-03-13 05:17] VITALS: TEMP 97.8
[2025-03-13 05:19] VITALS: O2SAT 100
[2025-03-13 05:22] VITALS: BP 137/72
--- NOTE | 2025-03-13 05:51 | RAD REPORT ---
EXAM: XR Chest, 1 View CLINICAL HISTORY: SOB TECHNIQUE: Frontal view of the chest. COMPARISON: No relevant prior studies available. FINDINGS: Lungs: Unremarkable. No consolidation. Pleural space: Unremarkable. No pneumothorax. Heart: Unremarkable. No cardiomegaly. Mediastinum: Unremarkable. Normal mediastinal contour. Bones/joints: Unremarkable. No acute fracture. IMPRESSION: No acute disease. Electronically signed by: Vanesa Boudreaux MD 03/13/2025 01:51 AM CDT RP Due to temporary technical issues with the PACS/Qriket reporting system, reports are being fariba d by the in-house radiologist without review as a courtesy to ensure prompt reporting. The interpreting radiologist is fully responsible for the content of the report. Transcribed Date/Time: 03/13/2025 5:51 AM
== END 2025-03-13 05:06 | disposition home or self-care (01) ==
LOC: ER 23:38
DX: R06.02 Shortness of breath (principal); R05.9 Cough, unspecified; R09.81 Nasal congestion; I10 Essential (primary) hypertension; F17.210 Nicotine dependence, cigarettes, uncomplicated; Z11.52 Encounter for screening for COVID-19
CPT/HCPCS: 36415; 71045; 71275; 80048; 80076; 83735; 83880; 84484; 85025; 85379; 85610; 87428; 93005; 96374; 99285; J2919; J7613; J7644; Q9967